=== PATIENT | female | born 1935 | race Hispanic/Latino ===

== ENCOUNTER 2016-06-29 18:12 | Observation (INO) | payer MEDICARE ==
[2016-06-29 18:26] VITALS: O2SAT 100
--- NOTE | 2016-06-29 18:52 | ED PDOC ---
Arrival/HPI - General Chief Complaint: GI Problem Time Seen by Provider: 06/29/16 18:32 Historian: Patient - History of Present Illness Narrative History of Present Illness (Text): 06/29/16 18:49 80 year old female presents to the emergency department with nausea. pt poor historian, but states feels weak. denies syncope. No chest pain, no other complaints. No fever, urinary symptoms, shortness of breath. PMD: Dr. aGrcia 06/29/16 21:51 Time/Duration: 24 hours Symptom Onset: Gradual Symptom Course: Unchanged Modifying Factors (Text): None Associated Symptoms (Text): None Past Medical History - Provider Review Nursing Documentation Reviewed: Yes - Infectious Disease Hx of Infectious Diseases: None - Tetanus Immunization Tetanus Immunization: Unknown - Cardiac Hx Pacemaker: No - Pulmonary Hx Respiratory Disorders: No - Neurological Hx Paralysis: No - HEENT Hx HEENT Disorder: Yes Hx Cataracts: Yes (bilateral) - Renal Hx Renal Disorder: No - Endocrine/Metabolic Hx Endocrine Disorders: No - Hematological/Oncological Hx Blood Transfusions: No Hx Blood Transfusion Reaction: No - Integumentary Hx Dermatological Disorder: No - Musculoskeletal/Rheumatological Hx Musculoskeletal Disorders: Yes - Gastrointestinal Hx Gastrointestinal Disorders: No - Genitourinary/Gynecological Hx Genitourinary Disorders: No - Psychiatric Hx Emotional Abuse: No Hx Physical Abuse: No Hx Substance Use: No - Surgical History Hx Cardiac Catheterization: Yes - Anesthesia Hx Anesthesia Reactions: No Hx Malignant Hyperthermia: No - Suicidal Assessment Feels Threatened In Home Enviroment: No Family/Social History - Physician Review Nursing Documentation Reviewed: Yes Family/Social History: Unknown Family HX Smoking Status: Former Smoker Hx Alcohol Use: No Hx Substance Use: No Hx Substance Use Treatment: No Allergies/Home Meds Allergies/Adverse Reactions: Allergies Penicillins Allergy (Severe, Verified 06/29/16 18:25) RASH Home Medications: Home Meds Medication Instructions Recorded Confirmed Clopidogrel [Plavix] 75 mg PO DAILY 09/08/14 04/19/16 Metoprolol Succinate 50 mg PO DAILY 09/08/14 04/19/16 Atorvastatin Calcium [Lipitor] 40 mg PO DAILY 11/10/14 04/19/16 Cholecalciferol (Vitamin D3) 1,000 mg PO DAILY 02/12/15 04/19/16 [Vitamin D3] Calcium Carbonate [Calcium] 500 mg PO DAILY 04/12/16 04/19/16 Donepezil [Aricept] 10 mg PO DAILY 04/12/16 04/19/16 Folic Acid 1 mg PO DAILY 04/12/16 04/19/16 Lisinopril [Zestril] 5 mg PO DAILY 04/12/16 04/19/16 Multivitamin [One Daily] 1 tab PO DAILY 04/12/16 04/19/16 [id number] Ethyl Esters [OMEGA 3] 500 mg PO DAILY 04/12/16 04/19/16 Psyllium Husk [Metamucil] 1 tab PO DAILY 04/12/16 04/19/16 Aspirin [Ecotrin] 81 mg PO DAILY 04/19/16 04/19/16 Gabapentin [Neurontin] 300 mg PO DAILY 04/19/16 04/19/16 Review of Systems - Physician Review All systems were reviewed & negative as marked: Yes - Review of Systems Constitutional: absent: Fevers Respiratory: absent: SOB Cardiovascular: absent: Chest Pain, Syncope Gastrointestinal: Nausea Genitourinary Female: absent: Dysuria, Frequency, Hematuria Physical Exam Vital Signs Reviewed: Yes Vital Signs Temp Pulse Resp BP Pulse Ox 06/29/16 21:17 49 L 17 177/85 H 100 06/29/16 20:37 42 L 16 120/87 100 06/29/16 19:07 98.4 F 44 L 16 141/77 100 06/29/16 18:16 97.4 F L 46 L 16 182/93 H 100 Temperature: Afebrile Blood Pressure: Hypertensive Pulse: Bradycardic Respiratory Rate: Normal Appearance: Positive for: Well-Appearing, Non-Toxic, Comfortable Pain Distress: None Mental Status: Positive for: Alert and Oriented X 3 - Systems Exam Head: Present: Atraumatic, Normocephalic Pupils: Present: PERRL Extroacular Muscles: Present: EOMI Conjunctiva: Present: Normal Mouth: Present: Moist Mucous Membranes Neck: Present: Normal Range of Motion Respiratory/Chest: Present: Clear to Auscultation, Good Air Exchange. No: Respiratory Distress, Accessory Muscle Use Cardiovascular: Present: Regular Rate and Rhythm, Normal S1, S2. No: Murmurs Abdomen: Present: Normal Bowel Sounds. No: Tenderness, Distention, Peritoneal Signs Back: Present: Normal Inspection Upper Extremity: Present: Normal Inspection. No: Cyanosis, Edema Lower Extremity: Present: Normal Inspection. No: Edema Neurological: Present: GCS=15, CN II-XII Intact, Speech Normal Skin: Present: Warm, Dry, Normal Color. No: Rashes Psychiatric: Present: Alert, Oriented x 3, Normal Insight, Normal Concentration Medical Decision Making ED Course and Treatment: Impression: 80 year old female presents to the emergency department with nausea/ weakness Differential Diagnosis include but are not limited to: r/o cardiac, metabolic, infectious etiology. noted bradycardia. pt on bblocker. previous records reviewed, and shows hr 50s+. Plan: -- EKG, Chest X-ray -- Zofran -- Labs -- Reassess and disposition Progress Notes: 06/29/16 19:49 Patient noted to be more bradycardic than normal. Patient states she lives by herself. Patient hemodynamically stable. Case discussed with Dr. Hollingsworth, accepts for observation. 06/29/16 21:51 - Lab Interpretations Lab Results: 06/29/16 18:56 06/29/16 18:56 Lab Results 06/29/16 18:56: WBC 7.3 D, RBC 4.46, Hgb 13.6, Hct 40.0, MCV 89.7, MCH 30.5, MCHC 34.0, RDW 13.5, Plt Count 194, MPV 10.9, Gran % 69.7 H, Lymph % (Auto) 23.5 , [place] % (Auto) 5.0, Eos % (Auto) 1.5, Baso % (Auto) 0.3, Gran # 5.07, Lymph # 1.7, [place] # 0.4, Eos # 0.1, Baso # 0.02, PT 10.7, INR 0.99, APTT 27.5, Sodium 134, Potassium 4.2, Chloride 99, Carbon Dioxide 28, Anion Gap 11, BUN 15, Creatinine 0.7, Est GFR ( Amer) > 60, Est GFR (Non-Af Amer) > 60, Random Glucose 110, Calcium 9.3, Magnesium 2.2, Total Bilirubin 0.8, AST 28, ALT 36, Alkaline Phosphatase 67, Lactate Dehydrogenase 368, Total Creatine Kinase 69, Troponin I < 0.01, Total Protein 7.2, Albumin 4.0, Globulin 3.1, Albumin/ Globulin Ratio 1.3, TSH 3rd Generation 0.80 - RAD Interpretation Radiology Orders: 06/29/16 18:46 CHEST PORTABLE [RAD] Stat - EKG Interpretation EKG Interpretation (Text): EKG shows sinus bradycardia at 47 BPM, otherwise normal Interpreted by ED Physician: Yes Type: 12 lead EKG - Medication Orders Current Medication Orders: Aspirin (Ecotrin) 81 mg PO DAILY MARCELO Atorvastatin Calcium (Lipitor) 40 mg PO DAILY MARCELO Clopidogrel Bisulfate (Plavix) 75 mg PO DAILY MARECLO Donepezil HCl (Aricept) 10 mg PO DAILY MARCELO Famotidine (Pepcid) 20 mg PO BID MARCELO Gabapentin (Neurontin) 300 mg PO DAILY MARCELO PRN Reason: Protocol Sodium Chloride (Sodium Chloride 0.9%) 1,000 mls @ 100 mls/hr IV .Q10H MARCELO Last Admin: 06/29/16 20:37 Dose: 100 MLS/HR eMAR Start Stop Document 06/29/16 20:37 WANDA (Rec: 06/29/16 20:37 WANDA [id number]) Intravenous Solution Start Date 06/29/16 Start Time 20:37 End Date 06/30/16 End time 06:37 Total Infusion Time 600 Lisinopril (Zestril) 5 mg PO DAILY [facility] Multivitamins (Thera Tab) 1 tab PO DAILY [facility] Non-Formulary Medication ([place]ibim-2-Saaj Ethyl Esters [[place] 3]) 500 mg PO DAILY MARCELO Ondansetron HCl (Zofran Inj) 4 mg IVP Q6H PRN PRN Reason: Nausea/Vomiting Discontinued Medications Ondansetron HCl (Zofran Inj) 4 mg IVP STAT STA Stop: 06/29/16 18:47 Last Admin: 06/29/16 19:42 Dose: 4 MG IVP Administration Document 06/29/16 19:42 WANDA (Rec: 06/29/16 19:42 WANDA [id number]) Charges for Administration # of IVP Administrations 1 - Scribe Statement The provider has reviewed the documentation as recorded by the Kinjal Frazier Provider Scribe Attestation: All medical record entries made by the Scribe were at my direction and personally dictated by me. I have reviewed the chart and agree that the record accurately reflects my personal performance of the history, physical exam, medical decision making, and the department course for this patient. I have also personally directed, reviewed, and agree with the discharge instructions and disposition. Disposition/Present on Arrival - Present on Arrival Any Indicators Present on Arrival: No History of DVT/PE: No History of Uncontrolled Diabetes: No Urinary Catheter: No History of Decub. Ulcer: No History Surgical Site Infection Following: None - Disposition Have Diagnosis and Disposition been Completed?: Yes Diagnosis: Bradycardia, Nausea Disposition: HOSPITALIZED Disposition Time: 09:00 Patient Problems: Current Active Problems Problem Status Diagnosed Bradycardia Acute Nausea Acute Condition: STABLE
[2016-06-29 18:58] LABS: ADD MANUAL DIFF? NO
[2016-06-29 19:13] LABS: BASO # 0.02 K/mm3 (0.0-2.0); BASO % 0.3 % (0.0-3.0); EOS # 0.1 (0.0-0.7); EOS % 1.5 % (1.5-5.0); GRAN # 5.07 (1.4-6.5); GRAN % 69.7 % (50.0-68.0); LYMPH # 1.7 (1.2-3.4); LYMPH % 23.5 % (22.0-35.0); MEAN CELL VOLUME 89.7 fL (80.0-105.0); MEAN CORPUSCULAR HEMOGLOBIN 30.5 pg (25.0-35.0); MEAN PLATELET VOLUME 10.9 fl (7.0-11.0); MONO # 0.4 (0.1-0.6); PLATELET COUNT 194 10^3/uL (120.0-450.0); RED CELL DISTRIBUTION WIDTH 13.5 % (11.5-14.5); WHITE BLOOD COUNT 7.3 10^3/ul (4.5-11.0)
[2016-06-29 19:18] LABS: ALB/GLOB RATIO 1.3 (1.1-1.8); ALKALINE PHOSPHATASE 67 U/L (38-133); ALT/SGPT 36 U/L (7-56); AST/SGOT 28 U/L (15-39); BILIRUBIN,TOTAL 0.8 mg/dL (0.2-1.3); BLOOD UREA NITROGEN 15 mg/dL (7-21); CALCIUM 9.3 mg/dL (8.4-10.5); CARBON DIOXIDE 28 mmol/L (21-33); CHLORIDE 99 mmol/L (98-107); GFR AFRICAN-AMERICAN > 60; GLUCOSE,RANDOM 110 mg/dL (70-110); MAGNESIUM 2.2 mg/dL (1.7-2.2); POTASSIUM 4.2 mmol/L (3.6-5.0); SODIUM 134 mmol/L (132-148); TOTAL PROTEIN 7.2 g/dL (5.8-8.3)
[2016-06-29 19:20] LABS: INR 0.99 (0.93-1.08); PARTIAL THROMBOPLASTIN TIME 27.5 Seconds (23.7-30.8)
[2016-06-29 19:41] LABS: TROPONIN I < 0.01 ng/mL
[2016-06-29] MEDS: Sodium Chloride 0.9% 1,000 ML IV SCH (20:37)
--- NOTE | 2016-06-29 20:37 | CP.PCM.HP ---
<Sophie Streeter - Last Filed: 06/29/16 21:12> History of Present Illness - History of Present Illness History of Present Illness: This is a 80Y F with PMH HTN, CAD, HLD, Dementia, [place], stent in RCA came in to the ED for nausea and weakness since this afternoon. She reports not feeling well today. She said she was feeling nauseous after eating a banana. She didn't vomit, but reports "not feeling right". Patient is noted to be a poor historian. At the time of interview, patient was noted to be bradycardic with HR in the 40s. She states she feels much better. She denies CP, SOB, n/v/d, numbness/tingling, vision changes. History obtained from reviewing old records. It is noted that patient had a stress test and echo on 01/[address] Monterroso. Echo showed EF of 50%, dilated L and R atria, mild aortic stenosis and moderate mitral regurgitation. Nuclear stress showed abnormal perfusion of distal inferior defect. It is noted on previous cardiac cath that the patient has severely calcified RCA. PMH: HTN, HLD, CAD, [place], dementia, discogenic disease of spine, neuropathy PSH: hysterectomy, PCI x 2- stent in RCA Home meds: ASA, Plavix, Lipitor, Lisinopril, Metroprolol, vit D, Calcium, Aricept, multivitamin All: Penicillin- not sure what happens when she takes it (doesnt remember) SH: Quit smoking 30yrs ago (used to smoked 1ppd x >10yrs), denies EtOH or drug use. Lives alone-takes care of self FH: non-contributory PMD: Dr. Carlson Boiler Out: Dr. Monterroso Present on Admission - Present on Admission Any Indicators Present on Admission: No Review of Systems - Constitutional Constitutional: Fatigue. absent: Chills, Fever, Headache - EENT Eyes: absent: Change in Vision, Loss of Vision Nose/Mouth/Throat: absent: Dysphagia, Tongue Swelling - Cardiovascular Cardiovascular: absent: Chest Pain at Rest, Leg Edema, Palpitations, Syncope - Respiratory Respiratory: absent: Cough, Dyspnea, Dyspnea on Exertion - Gastrointestinal Gastrointestinal: Nausea. absent: Change in Bowel Habits, Diarrhea, Dyspepsia, Vomiting - Genitourinary Genitourinary: absent: Dysuria, Hematuria - Musculoskeletal Musculoskeletal: absent: Numbness, Tingling - Neurological Neurological: Weakness. absent: Confusion, Headaches, Tingling, Vertigo Past Patient History - Infectious Disease Hx of Infectious Diseases: None - Tetanus Immunizations Tetanus Immunization: Unknown - Past Social History Smoking Status: Former Smoker - CARDIAC Hx Pacemaker: No - PULMONARY Hx Respiratory Disorders: No - NEUROLOGICAL Hx Paralysis: No - HEENT Hx HEENT Problems: Yes Hx Cataracts: Yes (bilateral) - RENAL Hx Chronic Kidney Disease: No - ENDOCRINE/METABOLIC Hx Endocrine Disorders: No - HEMATOLOGICAL/ONCOLOGICAL Hx Blood Transfusions: No Hx Blood Transfusion Reaction: No - INTEGUMENTARY Hx Dermatological Problems: No - MUSCULOSKELETAL/RHEUMATOLOGICAL Hx Musculoskeletal Disorders: Yes - GASTROINTESTINAL Hx Gastrointestinal Disorders: No - GENITOURINARY/GYNECOLOGICAL Hx Genitourinary Disorders: No - PSYCHIATRIC Hx Emotional Abuse: No Hx Physical Abuse: No Hx Substance Use: No - SURGICAL HISTORY Hx Cardiac Catheterization: Yes - ANESTHESIA Hx Anesthesia Reactions: No Hx Malignant Hyperthermia: No Meds Allergies/Adverse Reactions: Allergies Allergy/AdvReac Type Severity Reaction Status Date / Time Penicillins Allergy Severe RASH Verified 06/29/16 18:25 Physical Exam - Constitutional Appears: No Acute Distress - Head Exam Head Exam: ATRAUMATIC, NORMAL INSPECTION, NORMOCEPHALIC - Eye Exam Eye Exam: Normal appearance, PERRL Pupil Exam: NORMAL ACCOMODATION, PERRL - ENT Exam ENT Exam: Mucous Membranes Moist - Neck Exam Neck exam: Positive for: Normal Inspection - Respiratory Exam Respiratory Exam: Clear to Auscultation Bilateral, NORMAL BREATHING PATTERN. absent: Rhonchi, Wheezes - Cardiovascular Exam Cardiovascular Exam: Bradycardia, REGULAR RHYTHM, +S1, +S2. absent: Systolic Murmur - GI/Abdominal Exam GI & Abdominal Exam: Normal Bowel Sounds, Soft. absent: Mass, Rebound, Rigid, Tenderness - Extremities Exam Extremities exam: Positive for: normal inspection. Negative for: calf tenderness, pedal edema - Neurological Exam Neurological exam: Alert, CN II-XII Intact - Psychiatric Exam Psychiatric exam: Normal Affect, Normal Mood - Skin Skin Exam: Dry, Intact, Normal Color, Warm Results - Vital Signs Recent Vital Signs: Last Vital Signs Temp 98.4 F 06/29/16 19:07 Pulse 44 L 06/29/16 19:07 Resp 16 06/29/16 19:07 BP 141/77 06/29/16 19:07 Pulse Ox 100 06/29/16 19:07 - Labs Result Diagrams: 06/29/16 18:56 06/29/16 18:56 Labs: Laboratory Results - last 24 hr 06/29/16 18:56 WBC 7.3 D RBC 4.46 Hgb 13.6 Hct 40.0 MCV 89.7 MCH 30.5 MCHC 34.0 RDW 13.5 Plt Count 194 MPV 10.9 Gran % 69.7 H Lymph % (Auto) 23.5 [place] % (Auto) 5.0 Eos % (Auto) 1.5 Baso % (Auto) 0.3 Gran # 5.07 Lymph # 1.7 [place] # 0.4 Eos # 0.1 Baso # 0.02 PT 10.7 INR 0.99 APTT 27.5 Sodium 134 Potassium 4.2 Chloride 99 Carbon Dioxide 28 Anion Gap 11 BUN 15 Creatinine 0.7 Est GFR ( Amer) > 60 Est GFR (Non-Af Amer) > 60 Random Glucose 110 Calcium 9.3 Magnesium 2.2 Total Bilirubin 0.8 AST 28 ALT 36 Alkaline Phosphatase 67 Lactate Dehydrogenase 368 Total Creatine Kinase 69 Troponin I < 0.01 Total Protein 7.2 Albumin 4.0 Globulin 3.1 Albumin/Globulin Ratio 1.3 - EKG Data EKG Interpreted by: Myself EKG shows normal: Sinus rhythm Rate: Bradycardia Assessment & Plan - Assessment and Plan (Free Text) Assessment: This is a 80Y F with PMH HTN, CAD, HLD, Dementia, [place], stent in RCA admitted for symptomatic bradycardia. Plan: 1. Bradycardia - Hemodynamically stable - Troponin neg x 1 - Will check TSH - Hold Metoprolol - Cardiology Consulted- Dr. Monterroso - NPO - NS@100ml/hr - Zofran prn nausea 2. CAD - Continue Plavix, ASA 3. HTN - Continue Lisinopril 4. HLD - Continue Lipitor and [place]-3 5. Dementia - Continue Aricept 6. Hx of Neuropathy - Continue Gabapentin GI ppx: Pepcid DVT ppx: SCDs Case seen, reviewed and discussed with attending. Mariela Streeter PGY1 - Date & Time Date: 06/29/16 Time: 20:43 <Anthony Hollingsworth Q - Last Filed: 07/03/16 23:37> Results - Vital Signs Recent Vital Signs: Last Vital Signs Temp 97.9 F 06/30/16 12:00 Pulse 52 L 06/30/16 12:00 Resp 15 06/30/16 12:00 BP 138/67 06/30/16 12:00 Pulse Ox 100 06/30/16 05:21 - Labs Result Diagrams: 06/30/16 05:30 06/30/16 05:30 Attending/Attestation - Attestation I have personally seen and examined this patient.: Yes I have fully participated in the care of the patient.: Yes I have reviewed all pertinent clinical information: Yes
[2016-06-29 22:48] LABS: PH,URINE 6.5 (4.7-8.0); URINE BILIRUBIN NEGATIVE (NEGATIVE); URINE BLOOD TRACE-LYSED (NEGATIVE); URINE GLUCOSE (UA) NEGATIVE (NEGATIVE); URINE KETONE NEGATIVE (NEGATIVE); URINE LEUKOCYTE ESTERASE NEGATIVE Leu/uL (NEGATIVE); URINE PROTEIN NEGATIVE mg/dL (<30 mg/dL); URINE UROBILINOGEN 0.2 E.U./dL (<1 E.U./dL)
[2016-06-29 22:49] LABS: URINE APPEARANCE CLEAR (CLEAR); URINE COLOR STRAW (YELLOW)
[2016-06-29 23:04] LABS: URINE BACTERIA NEG (NEG); URINE EPITHELIAL CELLS 0 - 2 /hpf (0-5); URINE RBC 0 - 2 /hpf (0-2); URINE WBC NEGATIVE /hpf (0-6)
[2016-06-30 01:19] VITALS: BMI 23.3
[2016-06-30 05:21] VITALS: PULSE 52
[2016-06-30] MEDS: Sodium Chloride 0.9% 1,000 ML IV SCH (06:16)
[2016-06-30 07:53] LABS: TROPONIN I 0.02 ng/mL
[2016-06-30 08:03] LABS: ALB/GLOB RATIO 1.3 (1.1-1.8); ALKALINE PHOSPHATASE 55 U/L (38-133); ALT/SGPT 31 U/L (7-56); AST/SGOT 23 U/L (15-39); BILIRUBIN,TOTAL 0.6 mg/dL (0.2-1.3); BLOOD UREA NITROGEN 12 mg/dL (7-21); CALCIUM 8.7 mg/dL (8.4-10.5); CARBON DIOXIDE 27 mmol/L (21-33); CHLORIDE 104 mmol/L (98-107); GFR AFRICAN-AMERICAN > 60; GLUCOSE,RANDOM 83 mg/dL (70-110); POTASSIUM 3.8 mmol/L (3.6-5.0); SODIUM 137 mmol/L (132-148); TOTAL PROTEIN 6.1 g/dL (5.8-8.3)
--- NOTE | 2016-06-30 08:29 | RAD ---
HISTORY: weakness COMPARISON: 08/21/2015 FINDINGS: LUNGS: No active pulmonary disease. PLEURA: No significant pleural effusion identified, no pneumothorax apparent. CARDIOVASCULAR: Normal. OSSEOUS STRUCTURES: No significant abnormalities. VISUALIZED UPPER ABDOMEN: Normal. OTHER FINDINGS: None. IMPRESSION: No active disease.
[2016-06-30 08:54] LABS: ADD MANUAL DIFF? NO
[2016-06-30 08:57] LABS: BASO # 0.02 K/mm3 (0.0-2.0); BASO % 0.4 % (0.0-3.0); EOS # 0.2 (0.0-0.7); EOS % 3.2 % (1.5-5.0); GRAN # 2.97 (1.4-6.5); GRAN % 56.7 % (50.0-68.0); HEMATOCRIT 37.6 % (36.0-48.0); LYMPH # 1.7 (1.2-3.4); LYMPH % 32.4 % (22.0-35.0); MEAN CELL VOLUME 89.7 fL (80.0-105.0); MEAN CORPUSCULAR HEMOGLOBIN 30.5 pg (25.0-35.0); MONO # 0.4 (0.1-0.6); MONO % 7.3 % (1.0-6.0); PLATELET COUNT 177 10^3/uL (120.0-450.0); RED CELL DISTRIBUTION WIDTH 13.7 % (11.5-14.5); WHITE BLOOD COUNT 5.2 10^3/ul (4.5-11.0)
[2016-06-30] MEDS ORDERED: Non Formulary Medication (Omega-3-Acid Ethyl Esters [Omega 3] 500 MG) PO SCH (10:00)
[2016-06-30] MEDS ORDERED: Multivitamin Therapeutic Tab PO SCH (10:00)
--- NOTE | 2016-06-30 11:18 | CARD ---
APPROVED REPORT EKG Measurement Heart [id number] <Conclusion> Marked sinus bradycardia with sinus arrhythmia ST changes No change except the rate is slower.
[2016-06-30 12:20] VITALS: BP 138/67; RESP 15; TEMP 97.9
--- NOTE | 2016-06-30 12:53 | CP.PCM.DIS ---
<Tu Kent - Last Filed: 06/30/16 12:53> Provider - Provider Date of Admission: 06/29/16 19:49 Attending physician: Justin Maurice MD Primary care physician: Yosvany Carlson MD Time Spent in preparation of Discharge (in minutes): 45 Hospital Course - Lab Results Lab Results: Most Recent Lab Values WBC 5.2 10^3/ul (4.5-11.0) D 06/30/16 05:30 RBC 4.19 10^6/uL (3.5-6.1) 06/30/16 05:30 Hgb 12.8 gm/dL (12.0-16.0) 06/30/16 05:30 Hct 37.6 % (36.0-48.0) 06/30/16 05:30 MCV 89.7 fL (80.0-105.0) 06/30/16 05:30 MCH 30.5 pg (25.0-35.0) 06/30/16 05:30 MCHC 34.0 g/dl (31.0-37.0) 06/30/16 05:30 RDW 13.7 % (11.5-14.5) 06/30/16 05:30 Plt Count 177 10^3/uL (120.0-450.0) 06/30/16 05:30 MPV 11.0 fl (7.0-11.0) 06/30/16 05:30 Gran % 56.7 % (50.0-68.0) 06/30/16 05:30 Lymph % (Auto) 32.4 % (22.0-35.0) 06/30/16 05:30 [place] % (Auto) 7.3 % (1.0-6.0) H 06/30/16 05:30 Eos % (Auto) 3.2 % (1.5-5.0) 06/30/16 05:30 Baso % (Auto) 0.4 % (0.0-3.0) 06/30/16 05:30 Gran # 2.97 (1.4-6.5) 06/30/16 05:30 Lymph # 1.7 (1.2-3.4) 06/30/16 05:30 [place] # 0.4 (0.1-0.6) 06/30/16 05:30 Eos # 0.2 (0.0-0.7) 06/30/16 05:30 Baso # 0.02 K/mm3 (0.0-2.0) 06/30/16 05:30 PT 10.8 Seconds (9.9-11.8) 06/30/16 05:30 INR 1.00 (0.93-1.08) 06/30/16 05:30 APTT 27.5 Seconds (23.7-30.8) 06/29/16 18:56 Sodium 137 mmol/L (132-148) 06/30/16 05:30 Potassium 3.8 mmol/L (3.6-5.0) 06/30/16 05:30 Chloride 104 mmol/L (98-107) 06/30/16 05:30 Carbon Dioxide 27 mmol/L (21-33) 06/30/16 05:30 Anion Gap 10 (10-20) 06/30/16 05:30 BUN 12 mg/dL (7-21) 06/30/16 05:30 Creatinine 0.6 mg/dL (0.5-1.4) 06/30/16 05:30 Est GFR ( Amer) > 60 06/30/16 05:30 Est GFR (Non-Af Amer) > 60 06/30/16 05:30 Random Glucose 83 mg/dL (70-110) 06/30/16 05:30 Calcium 8.7 mg/dL (8.4-10.5) 06/30/16 05:30 Magnesium 2.2 mg/dL (1.7-2.2) 06/29/16 18:56 Total Bilirubin 0.6 mg/dL (0.2-1.3) 06/30/16 05:30 AST 23 U/L (15-39) 06/30/16 05:30 ALT 31 U/L (7-56) 06/30/16 05:30 Alkaline Phosphatase 55 U/L (38-133) 06/30/16 05:30 Lactate Dehydrogenase 368 U/L (333-699) 06/29/16 18:56 Total Creatine Kinase 69 U/L (35-230) 06/29/16 18:56 Troponin I 0.02 ng/mL D 06/30/16 05:30 Total Protein 6.1 g/dL (5.8-8.3) 06/30/16 05:30 Albumin 3.4 g/dL (3.0-4.8) 06/30/16 05:30 Globulin 2.7 gm/dL 06/30/16 05:30 Albumin/Globulin Ratio 1.3 (1.1-1.8) 06/30/16 05:30 TSH 3rd Generation 0.80 mIU/mL (0.46-4.68) 06/29/16 18:56 Urine Color Straw (YELLOW) 06/29/16 22:04 Urine Appearance Clear (CLEAR) 06/29/16 22:04 Urine pH 6.5 (4.7-8.0) 06/29/16 22:04 Ur Specific [place] 1.010 (1.005-1.035) 06/29/16 22:04 Urine Protein Negative mg/dL (<30 mg/dL) 06/29/16 22:04 Urine Glucose (UA) Negative mg/dL (NEGATIVE) 06/29/16 22:04 Urine Ketones Negative mg/dL (NEGATIVE) 06/29/16 22:04 Urine Blood Trace-lysed (NEGATIVE) H 06/29/16 22:04 Urine Nitrate Negative (NEGATIVE) 06/29/16 22:04 Urine Bilirubin Negative (NEGATIVE) 06/29/16 22:04 Urine Urobilinogen 0.2 E.U./dL (<1 E.U./dL) 06/29/16 22:04 Ur Leukocyte Esterase Negative [place]/uL (NEGATIVE) 06/29/16 22:04 Urine RBC 0 - 2 /hpf (0-2) 06/29/16 22:04 Urine WBC Negative /hpf (0-6) 06/29/16 22:04 Ur Epithelial Cells 0 - 2 /hpf (0-5) 06/29/16 22:04 Urine Bacteria Neg (NEG) 06/29/16 22:04 - Hospital Course Hospital Course: This is a 80Y F with PMH HTN, CAD, HLD, Dementia, [place], stent in RCA came in to the ED for nausea and weakness since this afternoon. She reports not feeling well today. She said she was feeling nauseous after eating a banana. She didn't vomit, but reports "not feeling right". Patient is noted to be a poor historian. At the time of interview, patient was noted to be bradycardic with HR in the 40s. She states she feels much better. She denies CP, SOB, n/v/d, numbness/tingling, vision changes. History obtained from reviewing old records. It is noted that patient had a stress test and echo on 01/[address] Monterroso. Echo showed EF of 50%, dilated L and R atria, mild aortic stenosis and moderate mitral regurgitation. Nuclear stress showed abnormal perfusion of distal inferior defect. It is noted on previous cardiac cath that the patient has severely calcified RCA. The following day pt felt better. Pt was given IVF. EKG showed sinus bradycardia. No longer felt dizzy or nauseous. Pt was seen by Cardio and cleared to DC home and ordered to DC Metoprolol. Pt tolerated diet and instructed to stop taking metoprolol. PMH: HTN, HLD, CAD, [place], dementia, discogenic disease of spine, neuropathy PSH: hysterectomy, PCI x 2- stent in RCA Home meds: ASA, Plavix, Lipitor, Lisinopril, Metroprolol, vit D, Calcium, Aricept, multivitamin All: Penicillin- not sure what happens when she takes it (doesnt remember) SH: Quit smoking 30yrs ago (used to smoked 1ppd x >10yrs), denies EtOH or drug use. Lives alone-takes care of self FH: non-contributory PMD: Dr. Carlson Camp Advisor: Dr. Monterroso Discharge Exam - Head Exam Head Exam: ATRAUMATIC, NORMAL INSPECTION, NORMOCEPHALIC - Eye Exam Eye Exam: EOMI, Normal appearance, PERRL Pupil Exam: NORMAL ACCOMODATION, PERRL - ENT Exam ENT Exam: Mucous Membranes Moist - Respiratory Exam Respiratory Exam: Clear to PA & Lateral, NORMAL BREATHING PATTERN, UNREMARKABLE - Cardiovascular Exam Cardiovascular Exam: Bradycardia, +S1, +S2 - GI/Abdominal Exam GI & Abdominal Exam: Normal Bowel Sounds - Extremities Exam Extremities exam: full ROM, normal inspection - Neurological Exam Neurological exam: Alert, CN II-XII Intact, Normal Gait, Oriented x3, Reflexes Normal - Psychiatric Exam Psychiatric exam: Normal Affect, Normal Mood - Skin Skin Exam: Dry, Intact, Normal Color, Warm Discharge Plan - Discharge Medications Prescriptions: Donepezil [Aricept] 10 mg PO DAILY #20 tab Gabapentin [Neurontin] 300 mg PO DAILY #20 cap [id number] Ethyl Esters [OMEGA 3] 500 mg PO DAILY #20 capsule Clopidogrel [Plavix] 75 mg PO DAILY #20 tab Lisinopril [Zestril] 5 mg PO DAILY #20 tab - Follow Up Plan Condition: STABLE Disposition: HOME/ ROUTINE Patient education suggested?: Yes Instructions: Acute Nausea and Vomiting (DC), Bradycardia (DC) Additional Instructions: f/u with PMD in 2 weeks Discontinue taking metoprolol Take Rx as prescribed Referrals: Yosvany Carlson MD [Primary Care Provider] - <Justin Maurice - Last Filed: 06/30/16 16:16> Provider - Provider Date of Admission: 06/29/16 19:49 Attending physician: Justin Maurice MD Primary care physician: Yosvany Carlson MD Hospital Course - Lab Results Lab Results: Most Recent Lab Values WBC 5.2 10^3/ul (4.5-11.0) D 06/30/16 05:30 RBC 4.19 10^6/uL (3.5-6.1) 06/30/16 05:30 Hgb 12.8 gm/dL (12.0-16.0) 06/30/16 05:30 Hct 37.6 % (36.0-48.0) 06/30/16 05:30 MCV 89.7 fL (80.0-105.0) 06/30/16 05:30 MCH 30.5 pg (25.0-35.0) 06/30/16 05:30 MCHC 34.0 g/dl (31.0-37.0) 06/30/16 05:30 RDW 13.7 % (11.5-14.5) 06/30/16 05:30 Plt Count 177 10^3/uL (120.0-450.0) 06/30/16 05:30 MPV 11.0 fl (7.0-11.0) 06/30/16 05:30 Gran % 56.7 % (50.0-68.0) 06/30/16 05:30 Lymph % (Auto) 32.4 % (22.0-35.0) 06/30/16 05:30 Travis % (Auto) 7.3 % (1.0-6.0) H 06/30/16 05:30 Eos % (Auto) 3.2 % (1.5-5.0) 06/30/16 05:30 Baso % (Auto) 0.4 % (0.0-3.0) 06/30/16 05:30 Gran # 2.97 (1.4-6.5) 06/30/16 05:30 Lymph # 1.7 (1.2-3.4) 06/30/16 05:30 Travis # 0.4 (0.1-0.6) 06/30/16 05:30 Eos # 0.2 (0.0-0.7) 06/30/16 05:30 Baso # 0.02 K/mm3 (0.0-2.0) 06/30/16 05:30 PT 10.8 Seconds (9.9-11.8) 06/30/16 05:30 INR 1.00 (0.93-1.08) 06/30/16 05:30 APTT 27.5 Seconds (23.7-30.8) 06/29/16 18:56 Sodium 137 mmol/L (132-148) 06/30/16 05:30 Potassium 3.8 mmol/L (3.6-5.0) 06/30/16 05:30 Chloride 104 mmol/L (98-107) 06/30/16 05:30 Carbon Dioxide 27 mmol/L (21-33) 06/30/16 05:30 Anion Gap 10 (10-20) 06/30/16 05:30 BUN 12 mg/dL (7-21) 06/30/16 05:30 Creatinine 0.6 mg/dL (0.5-1.4) 06/30/16 05:30 Est GFR ( Amer) > 60 06/30/16 05:30 Est GFR (Non-Af Amer) > 60 06/30/16 05:30 Random Glucose 83 mg/dL (70-110) 06/30/16 05:30 Calcium 8.7 mg/dL (8.4-10.5) 06/30/16 05:30 Magnesium 2.2 mg/dL (1.7-2.2) 06/29/16 18:56 Total Bilirubin 0.6 mg/dL (0.2-1.3) 06/30/16 05:30 AST 23 U/L (15-39) 06/30/16 05:30 ALT 31 U/L (7-56) 06/30/16 05:30 Alkaline Phosphatase 55 U/L (38-133) 06/30/16 05:30 Lactate Dehydrogenase 368 U/L (333-699) 06/29/16 18:56 Total Creatine Kinase 69 U/L (35-230) 06/29/16 18:56 Troponin I 0.02 ng/mL D 06/30/16 05:30 Total Protein 6.1 g/dL (5.8-8.3) 06/30/16 05:30 Albumin 3.4 g/dL (3.0-4.8) 06/30/16 05:30 Globulin 2.7 gm/dL 06/30/16 05:30 Albumin/Globulin Ratio 1.3 (1.1-1.8) 06/30/16 05:30 TSH 3rd Generation 0.80 mIU/mL (0.46-4.68) 06/29/16 18:56 Urine Color Straw (YELLOW) 06/29/16 22:04 Urine Appearance Clear (CLEAR) 06/29/16 22:04 Urine pH 6.5 (4.7-8.0) 06/29/16 22:04 Ur Specific [place] 1.010 (1.005-1.035) 06/29/16 22:04 Urine Protein Negative mg/dL (<30 mg/dL) 06/29/16 22:04 Urine Glucose (UA) Negative mg/dL (NEGATIVE) 06/29/16 22:04 Urine Ketones Negative mg/dL (NEGATIVE) 06/29/16 22:04 Urine Blood Trace-lysed (NEGATIVE) H 06/29/16 22:04 Urine Nitrate Negative (NEGATIVE) 06/29/16 22:04 Urine Bilirubin Negative (NEGATIVE) 06/29/16 22:04 Urine Urobilinogen 0.2 E.U./dL (<1 E.U./dL) 06/29/16 22:04 Ur Leukocyte Esterase Negative [place]/uL (NEGATIVE) 06/29/16 22:04 Urine RBC 0 - 2 /hpf (0-2) 06/29/16 22:04 Urine WBC Negative /hpf (0-6) 06/29/16 22:04 Ur Epithelial Cells 0 - 2 /hpf (0-5) 06/29/16 22:04 Urine Bacteria Neg (NEG) 06/29/16 22:04 Attending/Attestation - Attestation I have personally seen and examined this patient.: Yes I have fully participated in the care of the patient.: Yes I have reviewed all pertinent clinical information, including history, physical exam and plan: Yes Notes (Text): I have seen and examined patient at bedside with the resident. This is 80 year old female with history of HTN, CAD, HLD, dementia, [place] s/p RCA stent who got admitted for evaluation of nausea , weakness and found to have sinus bradycardia. Her symptoms improved over night. This morning she was able to tolerate the diet without any problem. She also was able to walk in the hallway without any difficulty. Patient was taking metoprolol which was held. Discussed with Dr Monterroso who cleared the patient for discharge. Upon discharge patient will follow up with Dr Danielson and Dr Monterroso. Patient lives alone and is able to drive and is capable of ADL's as per patient and her daughter. buckle coverer consult appreciated. Dr Justin Maurice
--- NOTE | 2016-06-30 16:19 | CON ---
DATE: 06/30/2016 HISTORY OF PRESENT ILLNESS: The patient is a 80-year-old woman who presents with transient nausea an d malaise. I was called to see her for bradycardia to the 50s. The patient denies dizziness, no shortness of breath and no chest pain. The patient suffers from hypertension as well as multivessel PTCA in the past. Her last stress test that was done in 01/2016 revealed good LV function with no change in her defects from her previous. PAST MEDICAL HISTORY: Also includes a history of hypercholesterolemia and COPD. SOCIAL HISTORY: She is a former smoker and she no longer smokes. REVIEW OF SYSTEMS: A 14-point review of systems was reviewed in detail. No cardiac symptomatology i s noted. PHYSICAL EXAMINATION: VITAL SIGNS: Blood pressure 137/73, heart rate is in the 50s and normal sinus rhythm. NECK: Negative JVD. LUNGS: Without rales. HEART: Reveals S1, S2. EXTREMITIES: Without edema. EKG is unremarkable. LABORATORIES: Hemoglobin is 12.8. Troponins are negative x 2. IMPRESSION: 1. Stable angina. 2. Bradycardia, likely due to her beta blockers as well as vagal stimulation from her nausea. 3. Stable angina. 4. Coronary artery disease. 5. Chronic obstructive pulmonary disease. 6. Hypercholesterolemia. Given these findings, the patient's treatment would be medical therapy. We will hold her beta blocke rs. No further cardiac workup is necessary at this time. Be Monterroso MD cc: [id number] TT: 06/30/2016 16:19:03 Confirmation # [id number] Dictation # [id number]
== END 2016-06-30 15:28 | disposition home or self-care (01) ==
LOC: ED 18:12 → ERH 19:49 → 2RNO 22:51
PROVIDERS: ADMIT Internal Medicine; ATTEND Hospitalist
DX: I25.118 Atherosclerotic heart disease of native coronary artery with other forms of angina pectoris (principal); I25.84 Coronary atherosclerosis due to calcified coronary lesion; E78.00 Pure hypercholesterolemia, unspecified; E78.5 Hyperlipidemia, unspecified; F03.90 Unspecified dementia, unspecified severity, without behavioral disturbance, psychotic disturbance, mood disturbance, and anxiety; I08.0 Rheumatic disorders of both mitral and aortic valves; I10 Essential (primary) hypertension; J44.9 Chronic obstructive pulmonary disease, unspecified; Z79.02 Long term (current) use of antithrombotics/antiplatelets; Z79.82 Long term (current) use of aspirin; Z79.899 Other long term (current) drug therapy; Z87.891 Personal history of nicotine dependence; Z90.710 Acquired absence of both cervix and uterus; Z95.5 Presence of coronary angioplasty implant and graft; H26.9 Unspecified cataract; R11.0 Nausea; I25.2 Old myocardial infarction; G62.9 Polyneuropathy, unspecified; R00.1 Bradycardia, unspecified
CPT/HCPCS: 36415; 71010; 80053; 81001; 82550; 83615; 83735; 84443; 84484; 85025; 85610; 85730; 93005; 96361; 96374; 99284; G0378; J2405; J7040

== ENCOUNTER 2016-12-22 10:01 | Emergency (ER) | payer MEDICARE ==
[2016-12-22 10:02] VITALS: BMI 23.3
[2016-12-22 10:10] VITALS: TEMP 98; O2SAT 99
--- NOTE | 2016-12-22 11:06 | ED PDOC ---
Arrival/HPI - General Chief Complaint: Back Pain Time Seen by Provider: 12/22/16 10:40 Historian: Patient - History of Present Illness Narrative History of Present Illness (Text): 12/22/16 10:49 A 81 year old female presents to the emergency department complaining of right mid thoracic back pain for the past 3-4 days. Patient reports pain occasionally radiates up towards her neck. Pain is non-positional and non-reproducible. Patient denies any trauma, injury, fever, chills, nausea, vomiting, abdominal pain, chest pain, shortness of breath, dyspnea on exertion or any other complaints. Time/Duration: Other (3-4 days) Symptom Course: Unchanged Quality: Other Context: Home Past Medical History - Provider Review Nursing Documentation Reviewed: Yes - Infectious Disease Hx of Infectious Diseases: None - Tetanus Immunization Tetanus Immunization: Unknown - Cardiac Hx Cardiac Disorders: Yes Hx Hypertension: Yes Hx Peripheral Vascular Disease: Yes - Pulmonary Hx Respiratory Disorders: No - Neurological Hx Neurological Disorder: Yes Hx Dementia: Yes - HEENT Hx HEENT Disorder: Yes (wears glasses) Hx Cataracts: Yes (bilateral) - Renal Hx Renal Disorder: No - Endocrine/Metabolic Hx Endocrine Disorders: No - Hematological/Oncological Hx Blood Disorders: No - Integumentary Hx Dermatological Disorder: No - Musculoskeletal/Rheumatological Hx Musculoskeletal Disorders: Yes Hx Back Pain: Yes (degenerative disc disease of spine) Hx Falls: No Hx Osteoarthritis: Yes - Gastrointestinal Hx Gastrointestinal Disorders: No - Genitourinary/Gynecological Hx Genitourinary Disorders: Yes Hx Incontinence: Yes Other/Comment: bladder prolapse with lift - Psychiatric Hx Psychophysiologic Disorder: No Hx Substance Use: No - Surgical History Hx Cardiac Catheterization: Yes Hx Coronary Stent: Yes Hx Hysterectomy: Yes Other/Comment: Bladder lift - Anesthesia Hx Anesthesia Reactions: No Hx Malignant Hyperthermia: No - Suicidal Assessment Feels Threatened In Home Enviroment: No Family/Social History - Physician Review Nursing Documentation Reviewed: Yes Family/Social History: No Known Family HX Smoking Status: Former Smoker Hx Alcohol Use: No Hx Substance Use: No Hx Substance Use Treatment: No Allergies/Home Meds Allergies/Adverse Reactions: Allergies Penicillins Allergy (Severe, Verified 12/22/16 10:04) RASH Home Medications: Home Meds Medication Instructions Recorded Confirmed Metoprolol Succinate 50 mg PO DAILY 09/08/14 12/22/16 Atorvastatin Calcium [Lipitor] 40 mg PO DAILY 11/10/14 12/22/16 Cholecalciferol (Vitamin D3) 1,000 mg PO DAILY 02/12/15 12/22/16 [Vitamin D3] Calcium Carbonate [Calcium] 500 mg PO DAILY 04/12/16 12/22/16 Folic Acid 1 mg PO DAILY 04/12/16 12/22/16 Multivitamin [One Daily] 1 tab PO DAILY 04/12/16 12/22/16 Psyllium Husk [Metamucil] 1 tab PO DAILY 04/12/16 12/22/16 Aspirin [Aspirin EC] 325 mg PO DAILY 06/29/16 12/22/16 Oxybutynin [Ditropan Tab] 5 mg PO DAILY 06/29/16 12/22/16 Physical Exam - Physical Exam Narrative Physical Exam (Text): - Review of Systems Constitutional: Normal. absent: Fatigue, Weight Change, Fevers Eyes: Normal ENT: denies sore throat, denies tristhmus Respiratory: Normal. absent: SOB, Cough, Sputum Cardiovascular: absent: Chest Pain, Palpitations, Syncope Gastrointestinal: Normal. absent: Abdominal Pain, Diarrhea, Nausea, Vomiting Genitourinary: Normal. absent: Dysuria, Frequency, Hematuria Musculoskeletal: (+) Back Pain, Neck Pain absent: Arthralgias Skin: no rashes, no erythema Neurological: absent: Focal Weakness Endocrine: Normal Hemo/Lymphatic: Normal Psychiatric: No suicidal or homicidal ideations Physical exam Patient appears age appropriate in no distress, speaking full sentences without difficulty - Systems Exam Head: Present: Atraumatic, Normocephalic Pupils: Present: PERRL Extroacular Muscles: Present: EOMI Conjunctiva: Present: Normal Mouth: Present: Moist Mucous Membranes Neck: Present: full active and passive ROM No: MIDLINE TENDERNESS Respiratory/Chest: Present: Clear to Auscultation, Good Air Exchange. No: Respiratory Distress, Accessory Muscle Use, Tachypneic Cardiovascular: Present: Regular Rate and Rhythm, Normal S1, S2, Peripheal Pulses Present. No: Murmurs Abdomen: Present: Normal Bowel Sounds. No: Tenderness, Distention, Peritoneal Signs, Rebound, Guarding Back: Present: Paraspinal tenderness No: Midline Tenderness Upper Extremity: Present: Normal Inspection. No: Cyanosis, Edema Lower Extremity: Present: Normal Inspection. No: Edema Neurological: Present: GCS=15, Speech Normal, cranial nerves II through XII fully intact with no cerebellar abnormality, neurosensory fully intact. No focal neurological deficits. Skin: Present: Warm, Dry, Normal Color. No: Rashes Lymphatic: Present: OX3, NI, NC Psychiatric: Present: Alert, Oriented x 3, Normal Insight, Normal Concentration Vital Signs Reviewed: Yes Vital Signs Temp Pulse Resp BP Pulse Ox 12/22/16 13:29 74 18 177/90 H 12/22/16 10:06 98.0 F 70 16 112/77 99 Temperature: Afebrile Blood Pressure: Normal Pulse: Regular Respiratory Rate: Normal Appearance: Positive for: Well-Appearing, Non-Toxic, Comfortable Pain Distress: None Mental Status: Positive for: Alert and Oriented X 3 Medical Decision Making ED Course and Treatment: 12/22/16 10:49 Impression: A 81 year old female with right mid thoracic pain. Patient notes radiation to neck. Physical exam unremarkable. Differential Diagnosis included but are not limited to: Musculoskeletal pain Plan: -- Chest CT r/o dissection -- Chest xray -- EKG -- Labs -- Toradol -- Reassess and disposition Progress Notes: EKG shows sinus bradycardia at [address]-segment elevations, normal intervals, slight lateral ST-segment depressions also present on prior EKG on . Interpreted by me. 12/22/16 11:36 Chest X-ray read and interpreted by me, which shows no cardiomegaly, no pneumothorax, no effusions. 12/22/16 13:30 CT is not working pt states she does not want to stay in the ER and wait for the CT in the ER I explained to pt that without the CT we may miss a dissection or other acute findings The patient refuses further workup and wishes to leave the Emergency Department against my medical advice. Patient was told that further workup is necessary and a full explanation of the reasons why was given, and understood by patient. The risks of leaving were explained and include worsening of condition, and permanent disability and from an undiagnosed or untreated condition. The patient accepts these risks, and is in my judgement is competent and capable of understanding the clinical situation and my explanation of the risks of leaving. Patient was given the opportunity to ask questions and change mind. The patient was instructed regarding the best care for the present symptoms, and to follow up with Dr. Carlson as soon as possible, or return to the Emergency Department at any time for continuing care. - Lab Interpretations Lab Results: 12/22/16 11:16 12/22/16 11:16 Lab Results 12/22/16 11:16: Sodium 138, Potassium 4.2, Chloride 100, Carbon Dioxide 28, Anion Gap 14, BUN 16, Creatinine 0.7, Est GFR ( Amer) > 60, Est GFR (Non- Af Amer) > 60, Random Glucose 83, Calcium 9.2, Total Bilirubin 0.6, AST 28, ALT 27, Alkaline Phosphatase 62, Lactate Dehydrogenase 362, Total Creatine Kinase 70 , Troponin I < 0.01 D, Total Protein 6.9, Albumin 4.2, Globulin 2.6, Albumin/ Globulin Ratio 1.6 12/22/16 11:16: PT 10.7, INR 0.99, APTT 27.6 12/22/16 11:16: WBC 6.1, RBC 4.40, Hgb 13.2, Hct 39.6, MCV 90.0, MCH 30.0, MCHC 33.3, RDW 14.0, Plt Count 188, MPV 10.4, Gran % 68.8 H, Lymph % (Auto) 23.0, [place] % (Auto) 6.6 H, Eos % (Auto) 1.3 L, Baso % (Auto) 0.3, Gran # 4.16, Lymph # 1.4, [place] # 0.4, Eos # 0.1, Baso # 0.02 I have reviewed the lab results: Yes - RAD Interpretation Radiology Orders: 12/22/16 10:49 ANGIO CHEST/ABDOMEN/PELVIS [CT] Stat CHEST PORTABLE [RAD] Stat - Medication Orders Current Medication Orders: Discontinued Medications Ketorolac Tromethamine (Toradol) 15 mg IVP STAT STA Stop: 12/22/16 10:50 Last Admin: 12/22/16 11:52 Dose: - Scribe Statement The provider has reviewed the documentation as recorded by the [employer] Rachel Provider Scribe Attestation: All medical record entries made by the Scribe were at my direction and personally dictated by me. I have reviewed the chart and agree that the record accurately reflects my personal performance of the history, physical exam, medical decision making, and the department course for this patient. I have also personally directed, reviewed, and agree with the discharge instructions and disposition. Disposition/Present on Arrival - Present on Arrival Any Indicators Present on Arrival: No History of DVT/PE: No History of Uncontrolled Diabetes: No Urinary Catheter: No History of Decub. Ulcer: No History Surgical Site Infection Following: None - Disposition Have Diagnosis and Disposition been Completed?: Yes Diagnosis: Back pain Disposition: AGAINST MEDICAL ADVICE Disposition Time: 13:31 Patient Plan: Discharge Condition: GUARDED Discharge Instructions (ExitCare): Back Pain (ED), Against Medical Advice (ED) Additional Instructions: PLEASE RETURN TO THE EMERGENCY DEPARTMENT FOR NEW OR WORSENING SYMPTOMS. RETURN RIGHT AWAY IF YOU CANNOT FOLLOW UP WITH YOUR PRIMARY CARE DOCTOR, CLINIC, OR SPECIALIST IN 1-2 DAYS. Prescriptions: Ibuprofen [Motrin] 600 mg PO Q8 PRN #12 tab PRN Reason: Pain, Moderate (4-7) Lidocaine 5% [Lidoderm] 1 ea TD DAILY #3 patch Referrals: Yosvany Carlson MD [Primary Care Provider] - Follow up with primary Forms: [employer] ([place]i)
[2016-12-22 11:32] LABS: BASO # 0.02 K/mm3 (0.0-2.0); BASO % 0.3 % (0.0-3.0); EOS # 0.1 (0.0-0.7); EOS % 1.3 % (1.5-5.0); GRAN # 4.16 (1.4-6.5); GRAN % 68.8 % (50.0-68.0); HEMATOCRIT 39.6 % (36.0-48.0); LYMPH # 1.4 (1.2-3.4); MEAN CORPUSCULAR HGB CONC 33.3 g/dl (31.0-37.0); MEAN PLATELET VOLUME 10.4 fl (7.0-11.0); MONO # 0.4 (0.1-0.6); MONO % 6.6 % (1.0-6.0); WHITE BLOOD COUNT 6.1 10^3/ul (4.5-11.0)
--- NOTE | 2016-12-22 11:38 | RAD ---
HISTORY: cough COMPARISON: 06/29/2016 FINDINGS: LUNGS: No active pulmonary disease. PLEURA: No significant pleural effusion identified, no pneumothorax apparent. CARDIOVASCULAR: Normal. OSSEOUS STRUCTURES: No significant abnormalities. VISUALIZED UPPER ABDOMEN: Normal. OTHER FINDINGS: None. IMPRESSION: No active disease.
[2016-12-22 11:41] LABS: INR 0.99 (0.93-1.08); PARTIAL THROMBOPLASTIN TIME 27.6 Seconds (23.7-30.8)
[2016-12-22 11:59] LABS: ALB/GLOB RATIO 1.6 (1.1-1.8); ALKALINE PHOSPHATASE 62 U/L (38-126); ALT/SGPT 27 U/L (7-56); AST/SGOT 28 U/L (14-36); BILIRUBIN,TOTAL 0.6 mg/dL (0.2-1.3); BLOOD UREA NITROGEN 16 mg/dL (7-21); CALCIUM 9.2 mg/dL (8.4-10.5); CARBON DIOXIDE 28 mmol/L (21-33); CHLORIDE 100 mmol/L (98-107); GFR AFRICAN-AMERICAN > 60; GLUCOSE,RANDOM 83 mg/dL (70-110); POTASSIUM 4.2 mmol/L (3.6-5.0); SODIUM 138 mmol/L (132-148); TOTAL PROTEIN 6.9 g/dL (5.8-8.3)
[2016-12-22 12:02] LABS: TROPONIN I < 0.01 ng/mL
[2016-12-22 13:29] VITALS: BP 177/90; PULSE 74; RESP 18
--- NOTE | 2016-12-22 22:07 | CARD ---
APPROVED REPORT EKG Measurement Heart [id number] <Conclusion> Poor data quality, interpretation may be adversely affected Sinus bradycardia Otherwise normal ECG
== END 2016-12-22 13:42 | disposition left against medical advice (07) ==
LOC: ED 10:01
DX: M54.9 Dorsalgia, unspecified (principal); I10 Essential (primary) hypertension; Z87.891 Personal history of nicotine dependence

== ENCOUNTER 2016-12-22 17:05 | Emergency (ER) | payer MEDICARE ==
[2016-12-22 17:06] VITALS: BMI 23.3
[2016-12-22 17:19] VITALS: RESP 16; TEMP 97.9; O2SAT 99
--- NOTE | 2016-12-22 17:26 | ED PDOC ---
Arrival/HPI - General Time Seen by Provider: 12/22/16 17:15 - History of Present Illness Narrative History of Present Illness (Text): 12/22/16 17:16 Patient in the ER, after signing out AMA, now back for CT to r/o dissection. Pt states her neck/back pain is better. No sob/hardy, no chest pain. No other complaints. Past Medical History - Provider Review Nursing Documentation Reviewed: Yes - Infectious Disease Hx of Infectious Diseases: None - Tetanus Immunization Tetanus Immunization: Unknown - Cardiac Hx Cardiac Disorders: Yes Hx Hypertension: Yes Hx Peripheral Vascular Disease: Yes - Pulmonary Hx Respiratory Disorders: No - Neurological Hx Neurological Disorder: Yes Hx Dementia: Yes - HEENT Hx HEENT Disorder: Yes (wears glasses) Hx Cataracts: Yes (bilateral) - Renal Hx Renal Disorder: No - Endocrine/Metabolic Hx Endocrine Disorders: No - Hematological/Oncological Hx Blood Disorders: No - Integumentary Hx Dermatological Disorder: No - Musculoskeletal/Rheumatological Hx Musculoskeletal Disorders: Yes Hx Back Pain: Yes (degenerative disc disease of spine) Hx Falls: No Hx Osteoarthritis: Yes - Gastrointestinal Hx Gastrointestinal Disorders: No - Genitourinary/Gynecological Hx Genitourinary Disorders: Yes Hx Incontinence: Yes Other/Comment: bladder prolapse with lift - Psychiatric Hx Psychophysiologic Disorder: No Hx Substance Use: No - Surgical History Hx Cardiac Catheterization: Yes Hx Coronary Stent: Yes Hx Hysterectomy: Yes Other/Comment: Bladder lift - Anesthesia Hx Anesthesia Reactions: No Hx Malignant Hyperthermia: No - Suicidal Assessment Feels Threatened In Home Enviroment: No Family/Social History Family/Social History: Unknown Family HX Smoking Status: Former Smoker Hx Alcohol Use: No Hx Substance Use: No Hx Substance Use Treatment: No Allergies/Home Meds Allergies/Adverse Reactions: Allergies Penicillins Allergy (Severe, Verified 12/22/16 17:15) RASH Home Medications: Home Meds Medication Instructions Recorded Confirmed Metoprolol Succinate 50 mg PO DAILY 09/08/14 12/22/16 Atorvastatin Calcium [Lipitor] 40 mg PO DAILY 11/10/14 12/22/16 Cholecalciferol (Vitamin D3) 1,000 mg PO DAILY 02/12/15 12/22/16 [Vitamin D3] Calcium Carbonate [Calcium] 500 mg PO DAILY 04/12/16 12/22/16 Folic Acid 1 mg PO DAILY 04/12/16 12/22/16 Multivitamin [One Daily] 1 tab PO DAILY 04/12/16 12/22/16 Psyllium Husk [Metamucil] 1 tab PO DAILY 04/12/16 12/22/16 Aspirin [Aspirin EC] 325 mg PO DAILY 06/29/16 12/22/16 Oxybutynin [Ditropan Tab] 5 mg PO DAILY 06/29/16 12/22/16 Physical Exam - Physical Exam Narrative Physical Exam (Text): 12/22/16 17:18 - Review of Systems Constitutional: Normal. absent: Fatigue, Weight Change, Fevers Eyes: Normal ENT: denies sore throat, denies tristhmus Respiratory: Normal. absent: SOB, Cough, Sputum Cardiovascular: absent: Chest Pain, Palpitations, Syncope Gastrointestinal: Normal. absent: Abdominal Pain, Diarrhea, Nausea, Vomiting Genitourinary: Normal. absent: Dysuria, Frequency, Hematuria Musculoskeletal: back pain, Neck Pain Skin: no rashes, no erythema Neurological: absent: Focal Weakness Endocrine: Normal Hemo/Lymphatic: Normal Psychiatric: No suicidal or homicidal ideations Physical exam Patient appears age appropriate in no distress, speaking full sentences without difficulty No midline tenderness. FROM of pt's cervical, thoracic, lumbar, and sacral regions appreciated, active/passive without any difficulty. Lower extremities with full neurological and vascular intact. Steady gait. - Systems Exam Head: Present: Atraumatic, Normocephalic Pupils: Present: PERRL Extroacular Muscles: Present: EOMI Conjunctiva: Present: Normal Mouth: Present: Moist Mucous Membranes Neck: Present: Normal Range of Motion. No: MIDLINE TENDERNESS Respiratory/Chest: Present: Clear to Auscultation, Good Air Exchange. No: Respiratory Distress, Accessory Muscle Use, Tachypneic Cardiovascular: Present: Regular Rate and Rhythm, Normal S1, S2, Peripheal Pulses Present. No: Murmurs Abdomen: Present: Normal Bowel Sounds. No: Tenderness, Distention, Peritoneal Signs, Rebound, Guarding Back: No: Midline Tenderness Upper Extremity: Present: Normal Inspection. No: Cyanosis, Edema Lower Extremity: Present: Normal Inspection. No: Edema Neurological: Present: GCS=15, Speech Normal, cranial nerves II through XII fully intact with no cerebellar abnormality, neurosensory fully intact. No focal neurological deficits. Skin: Present: Warm, Dry, Normal Color. No: Rashes Lymphatic: Present: OX3, NI, NC Psychiatric: Present: Alert, Oriented x 3, Normal Insight, Normal Concentration Vital Signs Temp Pulse Resp BP Pulse Ox 12/22/16 17:17 97.9 F 66 16 142/75 99 Medical Decision Making ED Course and Treatment: 12/22/16 17:27 Patient with nonreproducible back pain going to her neck. She signed out AGAINST MEDICAL ADVICE earlier today before CAT scan was done. Study ordered 12/22/16 19:00 patient signed out to Dr. Nair in stable condition, pending imaging, reeval, dispo - RAD Interpretation Radiology Orders: 12/22/16 17:15 ANGIOGRAPHY DISECTION PROTOCOL [CT] Stat Disposition/Present on Arrival - Present on Arrival Any Indicators Present on Arrival: No History of DVT/PE: No History of Uncontrolled Diabetes: No Urinary Catheter: No History Surgical Site Infection Following: None - Disposition Have Diagnosis and Disposition been Completed?: Yes Diagnosis: Back pain Disposition Time: 19:00 Condition: STABLE
[2016-12-22] MEDS ORDERED: Iohexol 350 MG/100 ML VIAL ONE (18:20)
--- NOTE | 2016-12-22 21:07 | ED PDOC ---
Physical Exam Vital Signs Reviewed: Yes Vital Signs Temp Pulse Resp BP Pulse Ox 12/22/16 17:17 97.9 F 66 16 142/75 99 Temperature: Afebrile Blood Pressure: Normal Pulse: Regular Respiratory Rate: Normal Appearance: Positive for: Well-Appearing, Non-Toxic, Comfortable Pain Distress: None Mental Status: Positive for: Alert and Oriented X 3 - Systems Exam Head: Present: Atraumatic, Normocephalic Pupils: Present: PERRL Extroacular Muscles: Present: EOMI Conjunctiva: Present: Normal Mouth: Present: Moist Mucous Membranes Neck: Present: Normal Range of Motion Respiratory/Chest: Present: Clear to Auscultation, Good Air Exchange. No: Respiratory Distress, Accessory Muscle Use Cardiovascular: Present: Regular Rate and Rhythm, Normal S1, S2, Tachycardic. No: Murmurs Abdomen: Present: Normal Bowel Sounds. No: Tenderness, Distention, Peritoneal Signs Back: Present: Normal Inspection. No: Midline Tenderness Upper Extremity: Present: Normal Inspection. No: Cyanosis, Edema Lower Extremity: Present: Normal Inspection. No: Edema Neurological: Present: GCS=15, CN II-XII Intact, Speech Normal Skin: Present: Warm, Dry, Normal Color. No: Rashes Psychiatric: Present: Alert, Oriented x 3, Normal Insight, Normal Concentration Medical Decision Making ED Course and Treatment: 12/22/16 19:08 Case endorsed to me by Dr. Fuentes. Patient has been seen early of the day for evaluation of mid- thoracic back pain for the past few days occasionally pain radiate neck. Patient denies any history of chest pain, shortness of breathe, and any trauma. Patient signed out AMA earlier today refusing to wait for CT scan of chest to rule out any possible dissecting aneurysm. Patient was advised the need for the study prior to discharge, but refused at the time and returned to have the test done. Resulting of the CT scan is pending. Patient states her neck and back pain was much improved following treatment followed by Dr. Fuentes. Plan: -- CT Angiography -- CT Angiography Chest With intravenous Contrast -- Reassess and disposition Progress Notes: EXAM: CT Angiography Chest With Intravenous Contrast Dictated and Authenticated by: Adeel Cooper MD 12/22/2016 8:41 PM IMPRESSION: No aortic aneurysm or evidence of dissection. EXAM: CT Angiography Abdomen and Pelvis With Intravenous Contrast Dictated and Authenticated by: Adeel Cooper MD 12/22/2016 8:49 PM 1. The aorta is diffusely calcified. No aneurysm or dissection. 2. 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 3. Severe disc space narrowing at L2-L3, L3-L4, L4-5 and L5-S1 with diffuse mild central canal stenosis. 4. Focal moderate to severe grade stenosis of the proximal left superficial femoral artery. - RAD Interpretation Radiology Orders: 12/22/16 17:15 ANGIOGRAPHY DISECTION PROTOCOL [CT] Stat - Scribe Statement The provider has reviewed the documentation as recorded by the Scribe Ayse Connell Provider Scribe Attestation: All medical record entries made by the Scribe were at my direction and personally dictated by me. I have reviewed the chart and agree that the record accurately reflects my personal performance of the history, physical exam, medical decision making, and the department course for this patient. I have also personally directed, reviewed, and agree with the discharge instructions and disposition. Disposition/Present on Arrival - Present on Arrival Any Indicators Present on Arrival: No History of DVT/PE: No History of Uncontrolled Diabetes: No Urinary Catheter: No History of Decub. Ulcer: No History Surgical Site Infection Following: None - Disposition Have Diagnosis and Disposition been Completed?: Yes Diagnosis: Back pain Disposition: HOME/ ROUTINE Disposition Time: 21:22 Patient Plan: Discharge Condition: STABLE Additional Instructions: Continue your previously prescribed meds/follow up with your doctor this week Prescriptions: traMADol/Acetaminophen [Ultracet 325 MG-37.5 MG] 1 tab PO Q6 PRN #12 tab PRN Reason: Pain Referrals: Yosvany Carlson MD [Primary Care Provider] - Follow up with primary Forms: [employer] (Armenian)
[2016-12-22 21:45] VITALS: BP 136/72; PULSE 82
--- NOTE | 2016-12-23 08:53 | CT ---
PROCEDURE: CT Angiography Chest, Abdomen and Pelvis with and without intravenous contrast HISTORY: back pain COMPARISON: None. TECHNIQUE: Contiguous axial images of the chest, abdomen and pelvis were obtained in the phase of aortic enhancement. A noncontrast enhanced CT of the chest was also obtained to evaluate for possible intramural thrombus. Coronal and sagittal reformats were generated. IV dose administered: 100 cc Omnipaque 350. Radiation dose: Total exam DLP = 1027.10 mGy-cm. This CT exam was performed using one or more of the following dose reduction techniques: Automated exposure control, adjustment of the mA and/or kV according to patient size, and/or use of iterative reconstruction technique. FINDINGS: CT ANGIOGRAPHY OF THE CHEST WITH & WITHOUT CONTRAST: AORTA (CHEST AND ABDOMEN): The thoracic and abdominal aorta are tortuous, without aneurysm, dissection or rupture. No intramural thrombus identified in the thoracic aorta on the non-contrast ct of the chest. The celiac axis, superior mesenteric artery, inferior mesenteric artery and the renal arteries are widely patent. The pelvic arteries are unremarkable. LUNGS: Clear. No nodule, mass or consolidation. MEDIASTINUM: Unremarkable. Normal caliber aorta and pulmonary arterial trunk. No aortic dissection. Normal size heart. LYMPH NODES: Unremarkable. PLEURA: Unremarkable. No pneumothorax. No pleural fluid. BONES: Unremarkable. OTHER FINDINGS: None. CT ANGIOGRAPHY OF THE ABDOMEN AND PELVIS WITH CONTRAST: LIVER: Unremarkable. No gross lesion or ductal dilatation. GALLBLADDER AND BILE DUCTS: Unremarkable. PANCREAS: Unremarkable. No gross lesion or ductal dilatation. SPLEEN: Unremarkable. ADRENALS: Unremarkable. No mass. KIDNEYS AND URETERS: Unremarkable. No hydronephrosis. No solid mass. VASCULATURE: Unremarkable. No aortic aneurysm. STOMACH AND BOWEL: Diverticulosis without an acute inflammatory component or other associated pathologic process. Constipation without fecal impaction or obstruction. APPENDIX: Normal appendix. PERITONEUM: Unremarkable. No free fluid. No free air. LYMPH NODES: Unremarkable. No enlarged lymph nodes. BLADDER: Unremarkable. REPRODUCTIVE: Unremarkable. BONES: No acute fracture. Scoliosis, secondary degenerative change at multiple levels. OTHER FINDINGS: None. IMPRESSION: Negative study for aortic dissection, aneurysm or other acute vascular abnormality. Additional benign and/or incidental findings described above. Concordant results (preliminary interpretation) provided by [facility]. Procedure Completed: 19:33 Preliminary ([facility]) Report: Dictated and Authenticated: 20:41 Final Interpretation: 08:52 December 23, 2016.
== END 2016-12-22 21:45 | disposition home or self-care (01) ==
LOC: ED 17:05
DX: M54.9 Dorsalgia, unspecified (principal); I10 Essential (primary) hypertension; Z87.891 Personal history of nicotine dependence
CPT/HCPCS: 71275; 74175; 99283; Q9967

== ENCOUNTER 2017-03-05 09:59 | Emergency (ER) | payer MEDICARE ==
[2017-03-05 09:59] VITALS: BMI 23.3
[2017-03-05 10:30] VITALS: TEMP 98.5; O2SAT 98
--- NOTE | 2017-03-05 10:41 | ED PDOC ---
Arrival/HPI - General Chief Complaint: Abnormal Skin Integrity Time Seen by Provider: 03/05/17 10:32 Historian: Patient - History of Present Illness Narrative History of Present Illness (Text): 03/05/17 10:38 81yo female with Past medical history of hypertension, hyperlipdemia, dementia , who present with complaint of painful rash to left sided mid back x 3days. States it became increasingly painful. Did not take any medication. Denies fever , chills, neck pain, nausea, vomiting, inciting factors. Past Medical History - Provider Review Nursing Documentation Reviewed: Yes - Infectious Disease Hx of Infectious Diseases: None - Tetanus Immunization Tetanus Immunization: Unknown - Reproductive Menopause: Yes - Cardiac Hx Cardiac Disorders: Yes Hx Hypertension: Yes Hx Peripheral Vascular Disease: Yes - Pulmonary Hx Respiratory Disorders: No - Neurological Hx Neurological Disorder: Yes Hx Dementia: Yes - HEENT Hx HEENT Disorder: Yes (wears glasses) Hx Cataracts: Yes (bilateral) - Renal Hx Renal Disorder: No - Endocrine/Metabolic Hx Endocrine Disorders: No - Hematological/Oncological Hx Blood Disorders: No - Integumentary Hx Dermatological Disorder: No - Musculoskeletal/Rheumatological Hx Musculoskeletal Disorders: Yes Hx Back Pain: Yes (degenerative disc disease of spine) Hx Falls: No Hx Osteoarthritis: Yes - Gastrointestinal Hx Gastrointestinal Disorders: No - Genitourinary/Gynecological Hx Genitourinary Disorders: Yes Hx Incontinence: Yes Other/Comment: bladder prolapse with lift - Psychiatric Hx Psychophysiologic Disorder: No Hx Substance Use: No - Surgical History Hx Cardiac Catheterization: Yes Hx Coronary Stent: Yes Hx Hysterectomy: Yes Other/Comment: Bladder lift - Anesthesia Hx Anesthesia Reactions: No Hx Malignant Hyperthermia: No - Suicidal Assessment Feels Threatened In Home Enviroment: No Family/Social History - Physician Review Nursing Documentation Reviewed: Yes Family/Social History: Unknown Family HX Smoking Status: Former Smoker Hx Alcohol Use: No Hx Substance Use: No Hx Substance Use Treatment: No Allergies/Home Meds Allergies/Adverse Reactions: Allergies Penicillins Allergy (Severe, Verified 12/22/16 17:15) RASH Home Medications: Home Meds Medication Instructions Recorded Confirmed Metoprolol Succinate 50 mg PO DAILY 09/08/14 12/22/16 Atorvastatin Calcium [Lipitor] 40 mg PO DAILY 11/10/14 12/22/16 Cholecalciferol (Vitamin D3) 1,000 mg PO DAILY 02/12/15 12/22/16 [Vitamin D3] Calcium Carbonate [Calcium] 500 mg PO DAILY 04/12/16 12/22/16 Folic Acid 1 mg PO DAILY 04/12/16 12/22/16 Multivitamin [One Daily] 1 tab PO DAILY 04/12/16 12/22/16 Psyllium Husk [Metamucil] 1 tab PO DAILY 04/12/16 12/22/16 Aspirin [Aspirin EC] 325 mg PO DAILY 06/29/16 12/22/16 Oxybutynin [Ditropan Tab] 5 mg PO DAILY 06/29/16 12/22/16 Review of Systems - Physician Review All systems were reviewed & negative as marked: Yes - Review of Systems Constitutional: Normal Eyes: Normal ENT: Normal Respiratory: Normal Cardiovascular: Normal Gastrointestinal: Normal Genitourinary Female: Normal Musculoskeletal: Normal Skin: Rash Neurological: Normal Endocrine: Normal Hemo/Lymphatic: Normal Psychiatric: Normal Physical Exam Vital Signs Reviewed: Yes Vital Signs Temp Pulse Resp BP Pulse Ox 03/05/17 10:27 98.5 F 66 16 136/78 98 Temperature: Afebrile Blood Pressure: Normal Pulse: Regular Respiratory Rate: Normal Appearance: Positive for: Well-Appearing, Non-Toxic, Comfortable Pain Distress: None Mental Status: Positive for: Alert and Oriented X 3 - Systems Exam Head: Present: Atraumatic, Normocephalic Pupils: Present: PERRL Extroacular Muscles: Present: EOMI Conjunctiva: Present: Normal Mouth: Present: Moist Mucous Membranes Neck: Present: Normal Range of Motion Respiratory/Chest: Present: Clear to Auscultation, Good Air Exchange. No: Respiratory Distress, Accessory Muscle Use Cardiovascular: Present: Regular Rate and Rhythm, Normal S1, S2. No: Murmurs Abdomen: Present: Normal Bowel Sounds. No: Tenderness, Distention, Peritoneal Signs Back: Present: Normal Inspection Upper Extremity: Present: Normal Inspection. No: Cyanosis, Edema Lower Extremity: Present: Normal Inspection. No: Edema Neurological: Present: GCS=15, CN II-XII Intact, Speech Normal Skin: Present: Warm, Dry, Rashes (Erythematous patch with overlaying vesicle noted to left mid back/dermatomal), Normal Color Psychiatric: Present: Alert, Oriented x 3, Normal Insight, Normal Concentration Disposition/Present on Arrival - Present on Arrival Any Indicators Present on Arrival: No History of DVT/PE: No History of Uncontrolled Diabetes: No Urinary Catheter: No History of Decub. Ulcer: No History Surgical Site Infection Following: None - Disposition Have Diagnosis and Disposition been Completed?: Yes Diagnosis: Herpes zoster Disposition: HOME/ ROUTINE Disposition Time: 10:50 Patient Plan: Discharge Condition: STABLE Discharge Instructions (ExitCare): Shingles (ED) Additional Instructions: Take medication as directed follow up with your doctor Return to Emergency department for any new or worsening symptoms Prescriptions: valACYclovir [Valtrex] 1 gm PO TID #21 tab Referrals: [facility] at [facility] [place] [Outside] - Follow up with primary
[2017-03-05 11:12] VITALS: BP 132/71; PULSE 67; RESP 18
== END 2017-03-05 11:30 | disposition home or self-care (01) ==
LOC: ED 09:59
DX: B02.9 Zoster without complications (principal)

== ENCOUNTER 2017-07-23 14:36 | Emergency (ER) | payer MEDICARE ==
--- NOTE | 2017-07-23 15:26 | ED PDOC ---
Arrival/HPI <Annie Giordano - Last Filed: 07/23/17 15:22> <Pawan Mojica DO - Last Filed: 07/23/17 18:40> - General Time Seen by Provider: 07/23/17 15:13 - History of Present Illness Narrative History of Present Illness (Text): 07/23/17 15:22 Patient is an 81 year old female who presents to the ED complaining of left hand pain after falling this morning. Patient says she was bending over the pick something up in the carpet and tripped as she was leaning forward so she threw her hand out to catch herself. Patient says she started noticing bruising and swelling so she decided to come to the ED to have it evaluated. Patient says her pain is currently a 5/10. Patient says the pain is worsened when she flexes/extends the wrist. She denies hitting her head, LOC, dizziness, numbness and tingling in the hand/arm, and radiation of the pain up the arm. (Annie Giordano) Past Medical History - Infectious Disease Hx of Infectious Diseases: None - Tetanus Immunization Tetanus Immunization: Unknown - Cardiac Hx Cardiac Disorders: Yes Hx Hypertension: Yes Hx Peripheral Vascular Disease: Yes - Pulmonary Hx Respiratory Disorders: No - Neurological Hx Neurological Disorder: Yes Hx Dementia: Yes - HEENT Hx HEENT Disorder: Yes (wears glasses) Hx Cataracts: Yes (bilateral) - Renal Hx Renal Disorder: No - Endocrine/Metabolic Hx Endocrine Disorders: No - Hematological/Oncological Hx Blood Disorders: No - Integumentary Hx Dermatological Disorder: No - Musculoskeletal/Rheumatological Hx Musculoskeletal Disorders: Yes Hx Back Pain: Yes (degenerative disc disease of spine) Hx Falls: No Hx Osteoarthritis: Yes - Gastrointestinal Hx Gastrointestinal Disorders: No - Genitourinary/Gynecological Hx Genitourinary Disorders: Yes Hx Incontinence: Yes Other/Comment: bladder prolapse with lift - Psychiatric Hx Psychophysiologic Disorder: No Hx Substance Use: No - Surgical History Hx Cardiac Catheterization: Yes Hx Coronary Stent: Yes Hx Hysterectomy: Yes Other/Comment: Bladder lift - Anesthesia Hx Anesthesia Reactions: No Hx Malignant Hyperthermia: No - Suicidal Assessment Feels Threatened In Home Enviroment: No <Annie Giordano - Last Filed: 07/23/17 15:22> Family/Social History Family/Social History: No Known Family HX Smoking Status: Former Smoker Hx Alcohol Use: No Hx Substance Use: No Hx Substance Use Treatment: No <PasqualeAnnie - Last Filed: 07/23/17 15:22> Allergies/Home Meds <Annie Giordano - Last Filed: 07/23/17 15:22> <Pawan Mojica DO - Last Filed: 07/23/17 18:40> Allergies/Adverse Reactions: Allergies Penicillins Allergy (Severe, Verified 07/23/17 15:25) RASH Home Medications: Home Meds Medication Instructions Recorded Confirmed Metoprolol Succinate 50 mg PO DAILY 09/08/14 07/23/17 Atorvastatin Calcium [Lipitor] 40 mg PO DAILY 11/10/14 07/23/17 Cholecalciferol (Vitamin D3) 1,000 mg PO DAILY 02/12/15 07/23/17 [Vitamin D3] Calcium Carbonate [Calcium] 500 mg PO DAILY 04/12/16 07/23/17 Folic Acid 1 mg PO DAILY 04/12/16 07/23/17 Multivitamin [One Daily] 1 tab PO DAILY 04/12/16 07/23/17 Psyllium Husk [Metamucil] 1 tab PO DAILY 04/12/16 07/23/17 Aspirin [Aspirin EC] 325 mg PO DAILY 06/29/16 07/23/17 Oxybutynin [Ditropan Tab] 5 mg PO DAILY 06/29/16 07/23/17 Review of Systems - Review of Systems Constitutional: Normal Eyes: Normal ENT: Normal Respiratory: Normal Cardiovascular: Normal Gastrointestinal: Normal Musculoskeletal: Other (swelling, pain, and bruising of the left hand) Skin: Normal. absent: Skin Lesions, Laceration Neurological: Normal. absent: Headache, Dizziness, Disequilibrium Endocrine: Normal Hemo/Lymphatic: Normal Psychiatric: Normal <Annie Giordano - Last Filed: 07/23/17 15:22> Physical Exam - Systems Exam Head: Present: Atraumatic, Normocephalic Pupils: Present: PERRL Extroacular Muscles: Present: EOMI Conjunctiva: Present: Normal Mouth: Present: Moist Mucous Membranes Neck: Present: Normal Range of Motion. No: MIDLINE TENDERNESS, Paraspinal Tenderness Respiratory/Chest: Present: Clear to Auscultation, Good Air Exchange. No: Respiratory Distress, Accessory Muscle Use Cardiovascular: Present: Regular Rate and Rhythm, Murmurs (systolic, heard best at the right 2nd intercostal space), Normal S1, S2 Abdomen: Present: Normal Bowel Sounds. No: Tenderness, Distention, Peritoneal Signs Back: Present: Normal Inspection. No: Midline Tenderness, Paraspinal Tenderness Upper Extremity: Present: Swelling (left hand), Neurovascularly Intact, Capillary Refill < 2s Lower Extremity: Present: Normal Inspection, Normal ROM. No: CALF TENDERNESS, Tenderness Neurological: Present: GCS=15, Speech Normal Skin: Present: Warm, Dry. No: Rashes Psychiatric: Present: Alert, Oriented x 3, Normal Insight, Normal Concentration <Annie Giordano - Last Filed: 07/23/17 15:22> Vital Signs Temp Pulse Resp BP Pulse Ox 07/23/17 17:00 98 F 65 18 159/75 H 99 07/23/17 15:24 98.8 F 75 20 161/93 H 96 - RAD Interpretation Radiology Orders: 07/23/17 15:32 HAND LEFT 3 VIEWS ROUTINE [RAD] Stat WRIST, LEFT 3 VIEWS [RAD] Stat - Medication Orders Current Medication Orders: Discontinued Medications Acetaminophen (Tylenol 325mg Tab) 650 mg PO STAT STA Stop: 07/23/17 17:24 Last Admin: 07/23/17 17:31 Dose: 650 mg MAR Pain/Vitals Document 07/23/17 17:31 [place] (Rec: 07/23/17 17:33 [place] [facility] [place]-[facility]) Pain Reassessment Is This A Pain ReAssessment? No Sleep Is patient sleeping during reassessment? No Presence of Pain Presence of Pain Yes Pain Scale Used Pain Scale Used Numeric Location Left, Right or Bilateral Left Pain Location Body Site Arm Description Throbbing Intensity 6 Scale Used Numeric Pain Behavior Guarding - PA / SPOT MACHINE OPERATOR / Resident Statement SHAWNA has reviewed & agrees with the documentation as recorded. SHAWNA has examined the patient and agrees with the treatment plan. <Annie Giordano - Last Filed: 07/23/17 15:22> - PA / SPOT MACHINE OPERATOR / Resident Statement SHAWNA has reviewed & agrees with the documentation as recorded. SHAWNA has examined the patient and agrees with the treatment plan. <Pawan Mojica DO - Last Filed: 07/23/17 18:40> Disposition/Present on Arrival - Present on Arrival History of DVT/PE: No History of Uncontrolled Diabetes: No Urinary Catheter: No History Surgical Site Infection Following: None <Annie Giordano - Last Filed: 07/23/17 15:22> - Present on Arrival Any Indicators Present on Arrival: No - Disposition Have Diagnosis and Disposition been Completed?: Yes Disposition Time: 17:25 <Shamekajake Pawan LASSITER - Last Filed: 07/23/17 18:40> - Disposition Diagnosis: Hand contusion, Wrist contusion Disposition: HOME/ ROUTINE Condition: GOOD Discharge Instructions (ExitCare): Contusion (DC) Additional Instructions: Thank you for letting us take care of you today. The emergency medical care you received today was directed at your acute symptoms. If you were prescribed any medication, please fill it and take as directed. It may take several days for your symptoms to resolve. Return to the Emergency Department if your symptoms worsen, do not improve, or if you have any other problems. Please contact your doctor or call one of the physicians/clinics you have been referred to that are listed on the Patient Visit Information form that is included in your discharge packet. Bring any paperwork you were given at discharge with you along with any medications you are taking to your follow up visit. Our treatment cannot replace ongoing medical care by a primary care provider (PCP) outside of the emergency department. Thank you for allowing the [facility] team to be part of your care today. Followup with your primary doctor in 2-3 days for re-evaluation and further management. Prescriptions: Ibuprofen [Motrin] 400 mg PO Q6 PRN #20 tab PRN Reason: Pain, Moderate (4-7) Referrals: Yosvany Carlson MD [Primary Care Provider] - Follow up with primary Forms: [employer] (Yoruba)
[2017-07-23 15:30] VITALS: BMI 21.7
--- NOTE | 2017-07-23 17:06 | RAD ---
PROCEDURE: Left Wrist Radiographs. HISTORY: fall, hand pain/swelling COMPARISON: None. FINDINGS: BONES: No acute fractures. JOINTS: Stable widening of the scapholunate joint. Degenerative changes involving the scaphoid trapezium and lunate capitate. Osteoarthritic changes, severe affecting the carpal 1st metacarpal bone. SOFT TISSUES: Normal. OTHER FINDINGS: None. IMPRESSION: Severe degenerative change. No acute findings.
--- NOTE | 2017-07-23 17:07 | RAD ---
PROCEDURE: Left Hand Radiographs. HISTORY: fall, hand pain/swelling COMPARISON: July 23, 2017. . Left wrist reported separately FINDINGS: BONES: Normal. No fracture. JOINTS: Osteoarthritic changes carpal 1st metacarpal joint. Juxta-articular osteopenia identified without erosive change. SOFT TISSUES: Normal. OTHER FINDINGS: None. IMPRESSION: No acute findings related to/accounting for the clinical presentation. Additional benign and/or incidental findings described above.
[2017-07-23 17:52] VITALS: BP 159/75; PULSE 65; RESP 18; TEMP 98; O2SAT 99
== END 2017-07-23 17:55 | disposition home or self-care (01) ==
LOC: ED 14:36
DX: S60.212A Contusion of left wrist, initial encounter (principal); W01.0XXA Fall on same level from slipping, tripping and stumbling without subsequent striking against object, initial encounter; Y92.89 Other specified places as the place of occurrence of the external cause

== ENCOUNTER 2017-09-27 12:58 | Emergency (ER) | payer MEDICARE ==
[2017-09-27 13:16] VITALS: BMI 24.2
--- NOTE | 2017-09-27 14:00 | ED PDOC ---
Arrival/HPI - General Chief Complaint: Female Genitourinary Time Seen by Provider: 09/27/17 13:45 Historian: Patient - History of Present Illness Narrative History of Present Illness (Text): 09/27/17 14:00 81 year old female, whose PMH includes MS, hypertension, COPD, cardiac catheterization, and coronary stent, who presents to the emergency department complaining of intermittent vaginal pain since 10 days. Patent reports the pain comes and goes, but this morning it was more painful compared to other days. Patient denies fever, dysuria, hematuria, shortness of breath, vaginal bleeding , back pain, abdominal pain, or other complaints. Time/Duration: > week Symptom Onset: Sudden Symptom Course: Intermittent Activities at Onset: Rest Context: Home Past Medical History - Provider Review Nursing Documentation Reviewed: Yes - Infectious Disease Hx of Infectious Diseases: None - Tetanus Immunization Tetanus Immunization: Unknown - Cardiac Hx Cardiac Disorders: Yes Hx MS: Yes Hx Hypertension: Yes - Pulmonary Hx Respiratory Disorders: Yes Hx Chronic Obstructive Pulmonary Disease (COPD): Yes - Neurological Hx Neurological Disorder: Yes Hx Dementia: Yes - HEENT Hx HEENT Disorder: Yes (wears glasses) Hx Cataracts: Yes (bilateral) - Renal Hx Renal Disorder: No - Endocrine/Metabolic Hx Endocrine Disorders: No - Hematological/Oncological Hx Blood Disorders: No - Integumentary Hx Dermatological Disorder: No - Musculoskeletal/Rheumatological Hx Musculoskeletal Disorders: Yes Hx Back Pain: Yes (degenerative disc disease of spine) Hx Falls: No Hx Osteoarthritis: Yes - Gastrointestinal Hx Gastrointestinal Disorders: No - Genitourinary/Gynecological Hx Genitourinary Disorders: Yes Hx Incontinence: Yes Other/Comment: bladder prolapse with lift - Psychiatric Hx Psychophysiologic Disorder: No Hx Substance Use: No - Surgical History Hx Cardiac Catheterization: Yes Hx Coronary Stent: Yes Hx Hysterectomy: Yes Other/Comment: Bladder lift - Anesthesia Hx Anesthesia Reactions: No Hx Malignant Hyperthermia: No - Suicidal Assessment Feels Threatened In Home Enviroment: No Family/Social History - Physician Review Nursing Documentation Reviewed: Yes Family/Social History: Unknown Family HX Smoking Status: Former Smoker Hx Alcohol Use: No Hx Substance Use: No Hx Substance Use Treatment: No Allergies/Home Meds Allergies/Adverse Reactions: Allergies Penicillins Allergy (Severe, Verified 09/27/17 13:15) RASH Home Medications: Home Meds Medication Instructions Recorded Confirmed Metoprolol Succinate 50 mg PO DAILY 09/08/14 09/27/17 Atorvastatin Calcium [Lipitor] 40 mg PO DAILY 11/10/14 09/27/17 Folic Acid 1 mg PO DAILY 04/12/16 09/27/17 Multivitamin [One Daily] 1 tab PO DAILY 04/12/16 09/27/17 Psyllium Husk [Metamucil] 1 tab PO DAILY 04/12/16 09/27/17 Oxybutynin [Ditropan Tab] 5 mg PO DAILY 06/29/16 09/27/17 Review of Systems - Physician Review All systems were reviewed & negative as marked: Yes - Review of Systems Constitutional: absent: Fevers Gastrointestinal: absent: Abdominal Pain Genitourinary Female: Other (Vaginal pain ) Physical Exam - Physical Exam Narrative Physical Exam (Text): 09/27/17 Gen: VS reviewed, alert, well developed, well nourished, nontoxic, mild distress. ENT: normal pharynx. Eye: EOMI, PERRL. Neck: no JVD, supple, no adenopathy. CV: regular rate, regular rhythm, no rubs, no murmur, no gallops, S1, S2, pulses equal and strong. Pulm: no distress, clear to auscultation, no wheeze, no rhonchi, breath sounds equal, no rales. Abd: soft, nontender, no guarding, no rebound, no rigidity, normal bowel sounds. Pelvic exam: (+) mild right vaginal discharge, suspicion yeast infection. Slip Injector And Applicator: Nurse Lilly Ext: no edema. Skin: good color, no rash, no cyanosis. Psych: responds appropriately to questions, normal affect. Neuro: oriented x 3, CN2-12 intact grossly, motor intact, sensation intact. Vital Signs Reviewed: Yes Vital Signs Temp Pulse Resp BP Pulse Ox 09/27/17 13:16 98 F 73 17 103/70 96 Temperature: Afebrile Blood Pressure: Normal Pulse: Regular Respiratory Rate: Normal Appearance: Positive for: Well-Appearing, Non-Toxic, Comfortable Pain Distress: None Mental Status: Positive for: Alert and Oriented X 3 Medical Decision Making ED Course and Treatment: 09/27/17 Impression: 81 year old female with mild right vaginal discharge complaining of vaginal pain. Plan: -- Urinalysis -- Labs -- Reassess and disposition Progress Notes: 0 09/27/17 16:11 patient seen for dysuria and vaginal discharge. will tx for uncomplicated uti and yeast vaginitis. refer to see anesthesiologist for comprehensive vaginal exam. - Lab Interpretations Lab Results: Lab Results 09/27/17 14:57: Urine Color Yellow, Urine Appearance Slight-cloudy, Urine pH 6.5 , Ur Specific [place] 1.015, Urine Protein Negative, Urine Glucose (UA) Negative , Urine Ketones Trace H, Urine Blood Small H, Urine Nitrate Positive H, Urine Bilirubin Negative, Urine Urobilinogen 0.2, Ur Leukocyte Esterase Moderate H, Urine RBC 1 - 3, Urine WBC 20 - 25, Ur Epithelial Cells 1 - 3, Urine Bacteria Mod I have reviewed the lab results: Yes - Scribe Statement The provider has reviewed the documentation as recorded by the Summeribe Brielle Ramsey Provider Scribe Attestation: All medical record entries made by the Scribe were at my direction and personally dictated by me. I have reviewed the chart and agree that the record accurately reflects my personal performance of the history, physical exam, medical decision making, and the department course for this patient. I have also personally directed, reviewed, and agree with the discharge instructions and disposition. Disposition/Present on Arrival - Present on Arrival Any Indicators Present on Arrival: No History of DVT/PE: No History of Uncontrolled Diabetes: No Urinary Catheter: No History of Decub. Ulcer: No History Surgical Site Infection Following: None - Disposition Have Diagnosis and Disposition been Completed?: Yes Diagnosis: UTI (urinary tract infection), Vaginitis due to [place] Disposition: HOME/ ROUTINE Disposition Time: 16:13 Patient Plan: Discharge Condition: GOOD Discharge Instructions (ExitCare): Vulvovaginal Yeast Infection, Urinary Tract Infections in Adults Print Language: CITIZEN OF [place] Additional Instructions: you must follow up with your pet food deboner for further evaluation of the vaginal irritation. take the antibiotics to treat the urine infection. you were already treated for a vaginal yeast infection in the emergency department. Prescriptions: Nitrofurantoin Macrocrystal [Nitrofurantoin] 100 mg PO BID #14 capsule Forms: [employer] (Bulgarian)
[2017-09-27 15:30] LABS: PH,URINE 6.5 (4.7-8.0); URINE BILIRUBIN NEGATIVE (NEGATIVE); URINE BLOOD SMALL (NEGATIVE); URINE GLUCOSE (UA) NEGATIVE (NEGATIVE); URINE LEUKOCYTE ESTERASE MODERATE Leu/uL (NEGATIVE); URINE PROTEIN NEGATIVE mg/dL (<30 mg/dL); URINE UROBILINOGEN 0.2 E.U./dL (<1 E.U./dL)
[2017-09-27 15:33] LABS: URINE APPEARANCE SLIGHT-CLOUDY (CLEAR); URINE COLOR YELLOW (YELLOW)
[2017-09-27 15:38] LABS: URINE BACTERIA MOD (NEG); URINE WBC 20 - 25 /hpf (0-6)
[2017-09-27 16:49] VITALS: PULSE 61; RESP 18; O2SAT 99
[2017-09-27 16:52] VITALS: TEMP 97.8
[2017-09-27 17:14] VITALS: BP 150/89
== END 2017-09-27 16:55 | disposition home or self-care (01) ==
LOC: ED 12:58
DX: N39.0 Urinary tract infection, site not specified (principal); B37.3 Candidiasis of vulva and vagina

== ENCOUNTER 2017-10-18 13:24 | Emergency (ER) | payer MEDICARE ==
[2017-10-18 13:24] VITALS: BMI 24.2
[2017-10-18 13:38] VITALS: PULSE 82; TEMP 98.2; O2SAT 96
--- NOTE | 2017-10-18 13:47 | ED PDOC ---
Arrival/HPI - General Chief Complaint: Female Genitourinary Time Seen by Provider: 10/18/17 13:28 Historian: Patient, Family (daughter Katharina from [place] via phone) - History of Present Illness Narrative History of Present Illness (Text): 10/18/17 13:44 82 year old female, with no significant past medical history, who presents to the emergency department complaining of a discomfort in the vagina for 5-6 days. Patient visited the emergency department on 09/27/17 for similar symptoms and was diagnosed with a UTI. Patient denies any back pain, fever, chills, chest pain, neck pain, shortness of breath, nausea, vomiting, or any other complaints. Time/Duration: < week Symptom Onset: Gradual Symptom Course: Unchanged Activities at Onset: Light Context: Home Past Medical History - Provider Review Nursing Documentation Reviewed: Yes - Infectious Disease Hx of Infectious Diseases: None - Tetanus Immunization Tetanus Immunization: Unknown - Cardiac Hx Cardiac Disorders: Yes Hx ID: Yes Hx Hypertension: Yes - Pulmonary Hx Respiratory Disorders: Yes Hx Chronic Obstructive Pulmonary Disease (COPD): Yes - Neurological Hx Neurological Disorder: Yes Hx Dementia: Yes - HEENT Hx HEENT Disorder: Yes (wears glasses) Hx Cataracts: Yes (bilateral) - Renal Hx Renal Disorder: No - Endocrine/Metabolic Hx Endocrine Disorders: No - Hematological/Oncological Hx Blood Disorders: No - Integumentary Hx Dermatological Disorder: No - Musculoskeletal/Rheumatological Hx Musculoskeletal Disorders: Yes Hx Back Pain: Yes Hx Osteoarthritis: Yes - Gastrointestinal Hx Gastrointestinal Disorders: No - Genitourinary/Gynecological Hx Genitourinary Disorders: Yes Hx Incontinence: Yes Other/Comment: bladder prolapse with lift - Psychiatric Hx Psychophysiologic Disorder: No Hx Substance Use: No - Surgical History Hx Cardiac Catheterization: Yes Hx Coronary Stent: Yes Hx Hysterectomy: Yes Other/Comment: Bladder lift - Anesthesia Hx Anesthesia Reactions: No Hx Malignant Hyperthermia: No - Suicidal Assessment Feels Threatened In Home Enviroment: No Family/Social History - Physician Review Nursing Documentation Reviewed: Yes Family/Social History: Unknown Family HX Smoking Status: Former Smoker Hx Alcohol Use: No Hx Substance Use: No Hx Substance Use Treatment: No Allergies/Home Meds Allergies/Adverse Reactions: Allergies Penicillins Allergy (Severe, Verified 10/18/17 13:26) RASH Home Medications: Home Meds Medication Instructions Recorded Confirmed Metoprolol Succinate 50 mg PO DAILY 09/08/14 10/18/17 Atorvastatin Calcium [Lipitor] 40 mg PO DAILY 11/10/14 10/18/17 Folic Acid 1 mg PO DAILY 04/12/16 10/18/17 Multivitamin [One Daily] 1 tab PO DAILY 04/12/16 10/18/17 Psyllium Husk [Metamucil] 1 tab PO DAILY 04/12/16 10/18/17 Review of Systems - Review of Systems Constitutional: absent: Fatigue, Fevers Respiratory: absent: SOB Cardiovascular: absent: Chest Pain Gastrointestinal: absent: Abdominal Pain Genitourinary Female: Dysuria, Frequency, Vaginal Discharge. absent: Hematuria , Urine Output Changes, Vaginal Bleeding Musculoskeletal: absent: Back Pain Skin: absent: Rash Neurological: absent: Headache, Focal Weakness Physical Exam Vital Signs Reviewed: Yes Vital Signs Temp Pulse Resp BP Pulse Ox 10/18/17 15:15 18 113/68 96 10/18/17 13:28 98.2 F 82 16 106/71 96 Temperature: Afebrile Appearance: Positive for: Well-Appearing, Non-Toxic Pain Distress: None Mental Status: Positive for: Alert and Oriented X 3 - Systems Exam Head: Present: Atraumatic Mouth: Present: Moist Mucous Membranes Pharnyx: No: ERYTHEMA, EXUDATE Neck: Present: Normal Range of Motion. No: Meningeal Signs Respiratory/Chest: Present: Clear to Auscultation Cardiovascular: Present: Regular Rate and Rhythm Abdomen: Present: Other (very MILD suprapubic discomfort, no masses palpated, no lateral pain, no upper abdominal pain) Genitourinary/Pelvic Exam: Present: Other (pelvic exam chaperoned by Maribel CONNOR, there is no active bleeding, no erythema or pus or significant discharge) Back: No: CVA Tenderness Upper Extremity: No: Edema Lower Extremity: No: Edema Neurological: Present: Normal Sensory Function Skin: Present: Warm Psychiatric: Present: Alert, Other (she is able to recall last visit to ER but does not recall whether she had follow-up) Medical Decision Making ED Course and Treatment: 10/18/17 13:47 Impression: 82 year old female presents to the emergency department complaining of vaginal discomfort x 5-6 days. Plan: -- Urine Culture -- UA -- Reassess and disposition Progress Notes: Patient's prior ER visit reviewed. 10/18/17 13:49 Urine culture from previous emergency department visit on 09/27/17 showed E.Coli. She was treated during prior visit with Nitrofurantoin and patient states her symptoms at that time resolved completely. She is uncertain whether she followed-up with light bulb replacer or PMD. 10/18/17 14:40 Pt gave permission to speak with her daughter Katharina, from [place]. She reports to me patient did follow-up with Dr. Lindquist. Explained pt treatment plan and need for close follow up. Case discussed with pt PMD, Dr. Carlson to better ensure follow-up. I reviewed Urinalysis results with patient, family Katharina, and Dr. Carlson. She is at her baseline mental status as reviewed with PMD and Katharina, and they will follow-up with her regarding urology and gynecology follow-up. As she is afebrile, urinating without difficulty, no cva tenderness, no fever, no vomiting, no chills, she will be discharged. I have reviewed with family, patient and PMD that urine culture will be sent and requires follow-up. Antibiotics prescribed. Follow-up and results reviewed with patient in laymen's terms. Dr. Carlson states office will call her for follow-up of her symptoms. She has prior cardiac history noted. She denies any chest pain, shortness of breath or lightheadedness, denies any other symptoms at this time. - Lab Interpretations Microbiology Results: Microbiology Results 10/18/17 14:00 Urine Urine Culture - Preliminary Gram Negative Primo Lab Results: Lab Results 10/18/17 14:00: Urine Color Yellow, Urine Appearance Turbid, Urine pH 6.5, Ur Specific [place] 1.015, Urine Protein 30 H, Urine Glucose (UA) Negative, Urine Ketones Negative, Urine Blood Moderate H, Urine Nitrate Positive H, Urine Bilirubin Negative, Urine Urobilinogen 0.2, Ur Leukocyte Esterase Large H, Urine RBC 1 - 3, Urine WBC Tntc, Urine Bacteria Many - Scribe Statement The provider has reviewed the documentation as recorded by the Scribxin Chaves All medical record entries made by the Scribe were at my direction and personally dictated by me. I have reviewed the chart and agree that the record accurately reflects my personal performance of the history, physical exam, medical decision making, and the department course for this patient. I have also personally directed, reviewed, and agree with the discharge instructions and disposition. Disposition/Present on Arrival - Present on Arrival Any Indicators Present on Arrival: No History of DVT/PE: No History of Uncontrolled Diabetes: No Urinary Catheter: No History of Decub. Ulcer: No History Surgical Site Infection Following: None - Disposition Have Diagnosis and Disposition been Completed?: Yes Diagnosis: Urinary tract infection Disposition: HOME/ ROUTINE Disposition Time: 15:00 Patient Plan: Discharge Condition: GOOD Discharge Instructions (ExitCare): Urinary Tract Infection, Adult (DC) Additional Instructions: I have reviewed your results with Katharina, your daughter with your permission, as well as with your doctor, Dr. Carlson. Your urine results are consistent with a urinary tract infection. Take antibiotics as directed. Please follow-up with your urologist DR. Davis and your light bulb replacer DR. Lindquist as discussed this week. Dr. Carlson will follow-up with you via phone as well in the next few days. RETURN TO THE EMERGENCY DEPARTMENT f you have ANY fever, any chest pain, any shortness of breath, any abdominal pain, any back pain, any nausea or vomiting, any new or persistent symptoms. A urine culture has been sent you will be called if there is an abnormal result that requires change in treatment. I have discussed your treatment plan with your daughter and physician. Prescriptions: Nitrofurantoin Macrocrystal [Nitrofurantoin] 100 mg PO BID #14 capsule Referrals: Yosvany Carlson MD [Primary Care Provider] - Follow up with primary Carrol Lindquist MD [Medical Doctor] - Follow up with primary Sancho Davis MD [Staff Provider] - Follow up with primary Forms: [employer] (Finnish)
[2017-10-18 14:16] LABS: PH,URINE 6.5 (4.7-8.0); URINE APPEARANCE TURBID (CLEAR); URINE BILIRUBIN NEGATIVE (NEGATIVE); URINE BLOOD MODERATE (NEGATIVE); URINE COLOR YELLOW (YELLOW); URINE GLUCOSE (UA) NEGATIVE (NEGATIVE); URINE LEUKOCYTE ESTERASE LARGE Leu/uL (NEGATIVE); URINE PROTEIN 30 mg/dL (<30 mg/dL); URINE UROBILINOGEN 0.2 E.U./dL (<1 E.U./dL)
[2017-10-18 14:19] LABS: URINE BACTERIA MANY (NEG); URINE WBC TNTC /hpf (0-6)
[2017-10-18 15:17] VITALS: BP 113/68; RESP 18
== END 2017-10-18 15:13 | disposition home or self-care (01) ==
LOC: ED 13:24
DX: N39.0 Urinary tract infection, site not specified (principal); I10 Essential (primary) hypertension; Z87.891 Personal history of nicotine dependence

== ENCOUNTER 2018-01-28 13:54 | Emergency (ER) | payer MEDICARE ==
[2018-01-28 13:55] VITALS: BMI 24.2
[2018-01-28 14:01] VITALS: O2SAT 99
--- NOTE | 2018-01-28 14:03 | ED PDOC ---
Arrival/HPI - General Chief Complaint: Back Pain Historian: Patient - History of Present Illness Time/Duration: Other (yesterday) Symptom Onset: Gradual Symptom Course: Worsening Quality: Aching Severity Level: Moderate Activities at Onset: Rest Associated Symptoms (Text): 01/28/18 14:01 Patient complains of left mid back pain beginning yesterday. No injury or trauma. No radiation. No abdominal pain nausea vomiting diarrhea constipation or GI bleed. No dysuria frequency urgency or hematuria. No numbness tingling or paresthesias. No lower extremity pain. She has developed an erythematous rash in the back. No worse with movement. Past Medical History - Infectious Disease Hx of Infectious Diseases: None - Tetanus Immunization Tetanus Immunization: Unknown - Reproductive Menopause: No - Cardiac Hx Cardiac Disorders: Yes Hx MT: Yes Hx Hypertension: Yes - Pulmonary Hx Respiratory Disorders: Yes Hx Chronic Obstructive Pulmonary Disease (COPD): Yes - Neurological Hx Neurological Disorder: Yes Hx Dementia: Yes - HEENT Hx HEENT Disorder: Yes (wears glasses) Hx Cataracts: Yes (bilateral) - Renal Hx Renal Disorder: No - Endocrine/Metabolic Hx Endocrine Disorders: No - Hematological/Oncological Hx Blood Disorders: No - Integumentary Hx Dermatological Disorder: No - Musculoskeletal/Rheumatological Hx Musculoskeletal Disorders: Yes Hx Back Pain: Yes Hx Osteoarthritis: Yes - Gastrointestinal Hx Gastrointestinal Disorders: No - Genitourinary/Gynecological Hx Genitourinary Disorders: Yes Hx Incontinence: Yes Other/Comment: bladder prolapse with lift - Psychiatric Hx Psychophysiologic Disorder: No Hx Substance Use: No - Surgical History Hx Cardiac Catheterization: Yes Hx Coronary Stent: Yes Hx Hysterectomy: Yes Other/Comment: Bladder lift - Anesthesia Hx Anesthesia: No Hx Anesthesia Reactions: No Hx Malignant Hyperthermia: No - Suicidal Assessment Feels Threatened In Home Enviroment: No Family/Social History - Physician Review Nursing Documentation Reviewed: Yes Family/Social History: Unknown Family HX Smoking Status: Former Smoker (Quit smoking 20 years ago) Hx Alcohol Use: No Hx Substance Use: No Hx Substance Use Treatment: No Allergies/Home Meds Allergies/Adverse Reactions: Allergies Penicillins Allergy (Severe, Verified 10/18/17 13:26) RASH Home Medications: Home Meds Medication Instructions Recorded Confirmed RX: Metoprolol Succinate 50 mg PO DAILY 09/08/14 10/18/17 RX: Atorvastatin Calcium [Lipitor] 40 mg PO DAILY 11/10/14 10/18/17 Multivitamin [One Daily] 1 tab PO DAILY 04/12/16 10/18/17 Psyllium Husk [Metamucil] 1 tab PO DAILY 04/12/16 10/18/17 RX: Folic Acid 1 mg PO DAILY 04/12/16 10/18/17 Review of Systems - Physician Review All systems were reviewed & negative as marked: Yes - Review of Systems Constitutional: absent: Fatigue, Fevers Respiratory: absent: SOB, Cough Cardiovascular: absent: Chest Pain, Palpitations, Syncope Gastrointestinal: absent: Abdominal Pain, Diarrhea, Nausea, Vomiting Genitourinary Female: absent: Dysuria, Frequency, Hematuria Neurological: absent: Focal Weakness, Gait Changes Physical Exam Vital Signs Temp Pulse Resp BP Pulse Ox 01/28/18 13:55 97.9 F 65 18 130/50 L 99 Temperature: Afebrile Blood Pressure: Normal Pulse: Regular Respiratory Rate: Normal Appearance: Positive for: Well-Appearing, Non-Toxic, Comfortable, Uncomfortable Pain Distress: Mild Mental Status: Positive for: Alert and Oriented X 3 - Systems Exam Neck: Present: Normal Range of Motion Respiratory/Chest: Present: Clear to Auscultation, Good Air Exchange. No: Respiratory Distress, Accessory Muscle Use Cardiovascular: Present: Regular Rate and Rhythm, Normal S1, S2. No: Murmurs Abdomen: No: Tenderness, Distention, Peritoneal Signs, Rebound, Guarding Back: No: Normal Inspection, CVA Tenderness, Midline Tenderness, Paraspinal Tenderness Upper Extremity: Present: Normal Inspection. No: Cyanosis, Edema Lower Extremity: Present: Normal Inspection. No: Edema Neurological: Present: GCS=15, CN II-XII Intact, Speech Normal, Motor Func Grossly Intact Skin: Present: Rashes (Erythematous rash in the left flank.) Medical Decision Making ED Course and Treatment: 01/28/18 14:03 Patient probably has early shingles. She'll be treated with pain medication and Famvir. Follow-up with . Disposition/Present on Arrival - Present on Arrival Any Indicators Present on Arrival: No History of DVT/PE: No History of Uncontrolled Diabetes: No Urinary Catheter: No History of Decub. Ulcer: No History Surgical Site Infection Following: None - Disposition Have Diagnosis and Disposition been Completed?: Yes Diagnosis: Shingles Disposition: HOME/ ROUTINE Disposition Time: 14:03 Patient Plan: Discharge Condition: Discharge Instructions (ExitCare): [place] (ED) Prescriptions: Famciclovir [Famvir] 500 mg PO Q8 #21 tab Tramadol HCl [Ultram] 50 mg PO Q6 PRN #20 tab PRN Reason: Pain Ondansetron [Zofran Odt] 4 mg SL Q6 #20 odt Forms: [employer] (Ukrainian)
[2018-01-28 14:39] VITALS: BP 126/83; PULSE 76; RESP 19; TEMP 98
== END 2018-01-28 14:38 | disposition home or self-care (01) ==
LOC: ED 13:54
DX: B02.9 Zoster without complications (principal)

== ENCOUNTER 2018-02-11 13:36 | Emergency (ER) | payer MEDICARE ==
[2018-02-11 13:44] VITALS: BMI 22.6
[2018-02-11 14:01] VITALS: TEMP 98.6
--- NOTE | 2018-02-11 14:08 | ED PDOC ---
Arrival/HPI - General Chief Complaint: Female Genitourinary Historian: Patient - History of Present Illness Narrative History of Present Illness (Text): 02/11/18 14:00 82 y/o female, pmh including htn/hld, penicillin allergy, c/o vaginal irritation x 3 days with no fall or trauma. Pt. stated that she has not been sexually active for over 10 years, been having vaginal irritation associated with urination for the past 3 days, no pelvic or flank pain, no abdominal pain, no night sweat, no rash, no numbness or tingling, on other medical or psychological complaints. Past Medical History - Provider Review Nursing Documentation Reviewed: Yes - Infectious Disease Hx of Infectious Diseases: None - Tetanus Immunization Tetanus Immunization: Unknown - Reproductive Menopause: No - Cardiac Hx Cardiac Disorders: Yes Hx IA: Yes Hx Hypertension: Yes - Pulmonary Hx Respiratory Disorders: Yes Hx Chronic Obstructive Pulmonary Disease (COPD): Yes - Neurological Hx Neurological Disorder: Yes Hx Dementia: Yes - HEENT Hx HEENT Disorder: Yes (wears glasses) Hx Cataracts: Yes (bilateral) - Renal Hx Renal Disorder: No - Endocrine/Metabolic Hx Endocrine Disorders: No - Hematological/Oncological Hx Blood Disorders: No - Integumentary Hx Dermatological Disorder: No - Musculoskeletal/Rheumatological Hx Musculoskeletal Disorders: Yes Hx Back Pain: Yes Hx Osteoarthritis: Yes - Gastrointestinal Hx Gastrointestinal Disorders: No - Genitourinary/Gynecological Hx Genitourinary Disorders: Yes Hx Incontinence: Yes Other/Comment: bladder prolapse with lift - Psychiatric Hx Psychophysiologic Disorder: No Hx Substance Use: No - Surgical History Hx Cardiac Catheterization: Yes Hx Coronary Stent: Yes Hx Hysterectomy: Yes Other/Comment: Bladder lift - Anesthesia Hx Anesthesia: No Hx Anesthesia Reactions: No Hx Malignant Hyperthermia: No - Suicidal Assessment Feels Threatened In Home Enviroment: No Family/Social History - Physician Review Nursing Documentation Reviewed: Yes Family/Social History: Unknown Family HX Smoking Status: Former Smoker (Quit smoking 20 years ago) Hx Alcohol Use: No Hx Substance Use: No Hx Substance Use Treatment: No Allergies/Home Meds Allergies/Adverse Reactions: Allergies Penicillins Allergy (Severe, Verified 10/18/17 13:26) RASH Home Medications: Home Meds Medication Instructions Recorded Confirmed Metoprolol Succinate 50 mg PO DAILY 09/08/14 10/18/17 Atorvastatin Calcium [Lipitor] 40 mg PO DAILY 11/10/14 10/18/17 Folic Acid 1 mg PO DAILY 04/12/16 10/18/17 Multivitamin [One Daily] 1 tab PO DAILY 04/12/16 10/18/17 Psyllium Husk [Metamucil] 1 tab PO DAILY 04/12/16 10/18/17 Review of Systems - Review of Systems Constitutional: absent: Fatigue, Fevers Eyes: absent: Vision Changes ENT: absent: Hearing Changes Respiratory: absent: SOB, Cough Cardiovascular: absent: Chest Pain Gastrointestinal: absent: Abdominal Pain, Diarrhea, Nausea, Vomiting Genitourinary Female: Other (vaginal irritation with urination) Musculoskeletal: absent: Arthralgias, Back Pain Skin: absent: Rash, Pruritis, Skin Lesions Neurological: absent: Headache Psychiatric: absent: Anxiety, Depression Physical Exam Vital Signs Reviewed: Yes Vital Signs Temp Pulse Resp BP Pulse Ox 02/11/18 13:44 98.6 F 80 20 145/80 99 Temperature: Afebrile Blood Pressure: Normal Pulse: Regular Respiratory Rate: Normal Appearance: Positive for: Well-Appearing, Non-Toxic, Comfortable Pain Distress: None Mental Status: Positive for: Alert and Oriented X 3 - Systems Exam Head: Present: Atraumatic, Normocephalic Pupils: Present: PERRL Extroacular Muscles: Present: EOMI Conjunctiva: Present: Normal Mouth: Present: Moist Mucous Membranes Neck: Present: Normal Range of Motion Respiratory/Chest: Present: Clear to Auscultation, Good Air Exchange. No: Respiratory Distress, Accessory Muscle Use Cardiovascular: Present: Regular Rate and Rhythm, Normal S1, S2. No: Murmurs Abdomen: No: Tenderness, Distention, Peritoneal Signs Genitourinary/Pelvic Exam: Present: Normal External Genitalia, Cervical os Margo sed, Other (Female [employer] clothing examiner: Samanta Abdifatah). No: Vaginal Discharge, Vaginal Bleeding, Vaginal Lesions, Adenexal Tenderness, Adenexal Mass, Cervical Motion Tendernes, Odor Back: Present: Normal Inspection Upper Extremity: Present: Normal Inspection. No: Cyanosis, Edema Lower Extremity: Present: Normal Inspection. No: Edema Neurological: Present: GCS=15, CN II-XII Intact, Speech Normal Skin: Present: Warm, Dry, Normal Color. No: Rashes Psychiatric: Present: Alert, Oriented x 3, Normal Insight, Normal Concentration Medical Decision Making ED Course and Treatment: 02/11/18 14:15 -UA -Observe and reassess 02/11/18 14:48 -UA show +UTI and +yeast, discharge home with bactrim ds (last urine culture 10/2017 is sensitive to bactrim ds) and ordered diflucan 150mg po here. -Discharge home with bactrim ds, repeat UA after 1 week completion of the antibiotic, follow up with your own pmd and obgyn within 2 days, return to the ER for any new or worsening signs or symptoms. - PA / PAYROLL ASSISTANT / Resident Statement MD/DO has reviewed & agrees with the documentation as recorded. Disposition/Present on Arrival - Present on Arrival Any Indicators Present on Arrival: No History of DVT/PE: No History of Uncontrolled Diabetes: No Urinary Catheter: No History of Decub. Ulcer: No History Surgical Site Infection Following: None - Disposition Have Diagnosis and Disposition been Completed?: Yes Diagnosis: UTI (urinary tract infection), Candidiasis Disposition: HOME/ ROUTINE Disposition Time: 14:49 Patient Plan: Discharge Condition: GOOD Additional Instructions: -Discharge home with bactrim ds, repeat UA after 1 week completion of the antibiotic, follow up with your own pmd and obgyn within 2 days, return to the ER for any new or worsening signs or symptoms. Prescriptions: Sulfamethoxazole/Trimethoprim [Bactrim DS 800 mg-160 mg] 1 tab PO BID #14 tab Referrals: Yosvany Carlson MD [Family Provider] - Follow up with primary Marci Dee MD [Staff Provider] - Follow up with primary Forms: [employer] (Persian), WORK NOTE
[2018-02-11 14:29] LABS: URINE APPEARANCE CLEAR (CLEAR); URINE BILIRUBIN NEGATIVE (NEGATIVE); URINE BLOOD TRACE-INTACT (NEGATIVE); URINE COLOR YELLOW (YELLOW); URINE GLUCOSE (UA) NEGATIVE (NEGATIVE); URINE LEUKOCYTE ESTERASE SMALL Leu/uL (NEGATIVE); URINE PROTEIN NEGATIVE mg/dL (<30 mg/dL); URINE UROBILINOGEN 0.2 E.U./dL (<1 E.U./dL)
[2018-02-11 14:46] LABS: URINE AMORPHOUS SEDIMENT FEW; URINE BACTERIA MANY (NEG)
[2018-02-11 16:02] VITALS: BP 139/67; PULSE 83; RESP 19; O2SAT 100
== END 2018-02-11 15:20 | disposition home or self-care (01) ==
LOC: ED 13:36
DX: N39.0 Urinary tract infection, site not specified (principal); B37.9 Candidiasis, unspecified

== ENCOUNTER 2018-03-13 12:55 | Emergency (ER) | payer MEDICARE ==
[2018-03-13 12:55] VITALS: BMI 22.6
--- NOTE | 2018-03-13 13:16 | ED PDOC ---
Arrival/HPI - General Chief Complaint: GI Problem Time Seen by Provider: 03/13/18 12:59 Historian: Patient - History of Present Illness Narrative History of Present Illness (Text): 03/13/18 13:14 82 year old female, whose past medical history includes penicillin allergy, hypertension, hyperlipidemia, NC, COPD, osteoarthritis, and a bladder prolapse with lift, presents to the emergency department complaining of nausea and vomit ing, for the past few hours. Patient states she was on her way home when she began to get car sick, felt nauseous and started vomiting. Family took her to the urgent care who sent her to the emergency department for persistent vomiting. Patient reports associated generalized weakness and mild headache. She denies fevers, chills, dizziness, chest pain, shortness of breath, dyspnea on exertion, cough, abdominal pain, diarrhea, back pain, neck pain, or any other complaint. PMD: Dr. Carlson 03/13/18 18:23 Time/Duration: Prior to Arrival Symptom Onset: Gradual Symptom Course: Unchanged Activities at Onset: Light Context: Home Past Medical History - Provider Review Nursing Documentation Reviewed: Yes - Infectious Disease Hx of Infectious Diseases: None - Tetanus Immunization Tetanus Immunization: Unknown - Reproductive Menopause: Yes - Cardiac Hx Cardiac Disorders: Yes Hx NC: Yes Hx Hypertension: Yes - Pulmonary Hx Respiratory Disorders: Yes Hx Chronic Obstructive Pulmonary Disease (COPD): Yes - Neurological Hx Neurological Disorder: Yes Hx Dementia: Yes - HEENT Hx HEENT Disorder: Yes (wears glasses) Hx Cataracts: Yes (bilateral) - Renal Hx Renal Disorder: No - Endocrine/Metabolic Hx Endocrine Disorders: No - Hematological/Oncological Hx Blood Disorders: No - Integumentary Hx Dermatological Disorder: No - Musculoskeletal/Rheumatological Hx Musculoskeletal Disorders: Yes Hx Back Pain: Yes Hx Osteoarthritis: Yes - Gastrointestinal Hx Gastrointestinal Disorders: No - Genitourinary/Gynecological Hx Genitourinary Disorders: Yes Hx Incontinence: Yes Other/Comment: bladder prolapse with lift - Psychiatric Hx Psychophysiologic Disorder: No Hx Substance Use: No - Surgical History Hx Cardiac Catheterization: Yes Hx Coronary Stent: Yes Hx Hysterectomy: Yes Other/Comment: Bladder lift - Anesthesia Hx Anesthesia: No Hx Anesthesia Reactions: No Hx Malignant Hyperthermia: No - Suicidal Assessment Feels Threatened In Home Enviroment: No Family/Social History - Physician Review Nursing Documentation Reviewed: Yes Family/Social History: No Known Family HX Smoking Status: Former Smoker Hx Alcohol Use: No Hx Substance Use: No Hx Substance Use Treatment: No Allergies/Home Meds Allergies/Adverse Reactions: Allergies Penicillins Allergy (Severe, Verified 10/18/17 13:26) RASH Home Medications: Home Meds Medication Instructions Recorded Confirmed RX: Metoprolol Succinate 50 mg PO DAILY 09/08/14 10/18/17 RX: Atorvastatin Calcium [Lipitor] 40 mg PO DAILY 11/10/14 10/18/17 Multivitamin [One Daily] 1 tab PO DAILY 04/12/16 10/18/17 Psyllium Husk [Metamucil] 1 tab PO DAILY 04/12/16 10/18/17 RX: Folic Acid 1 mg PO DAILY 04/12/16 10/18/17 Review of Systems - Physician Review All systems were reviewed & negative as marked: Yes - Review of Systems Constitutional: Other (generalized weakness ). absent: Fevers Respiratory: absent: SOB, Cough Cardiovascular: absent: Chest Pain Gastrointestinal: Nausea, Vomiting. absent: Abdominal Pain, Diarrhea Musculoskeletal: absent: Back Pain, Neck Pain Neurological: Headache. absent: Dizziness Physical Exam Vital Signs Reviewed: Yes Temperature: Afebrile Blood Pressure: Hypertensive Pulse: Bradycardic Respiratory Rate: Normal Appearance: Positive for: Well-Appearing, Non-Toxic, Comfortable Pain Distress: None Mental Status: Positive for: Alert and Oriented X 3 - Systems Exam Head: Present: Atraumatic, Normocephalic Pupils: Present: PERRL Extroacular Muscles: Present: EOMI Conjunctiva: Present: Normal Mouth: Present: Moist Mucous Membranes Neck: Present: Normal Range of Motion Respiratory/Chest: Present: Clear to Auscultation, Good Air Exchange. No: Respiratory Distress, Accessory Muscle Use Cardiovascular: Present: Regular Rate and Rhythm, Normal S1, S2. No: Murmurs Abdomen: No: Tenderness, Distention, Peritoneal Signs Back: Present: Normal Inspection Upper Extremity: Present: Normal Inspection. No: Cyanosis, Edema Lower Extremity: Present: Normal Inspection. No: Edema Neurological: Present: GCS=15, CN II-XII Intact, Speech Normal Skin: Present: Warm, Dry, Normal Color. No: Rashes Psychiatric: Present: Alert, Oriented x 3, Normal Insight, Normal Concentration Medical Decision Making ED Course and Treatment: 03/13/18 13:14 Impression: 82 year old female who presents to the emergency department complaining of nausea and vomiting. ro atypcial cardiac metabolic infectious etiology Plan: -- EKG -- Labs -- Chest X-ray -- Urinalysis -- Zofran -- Reassess and disposition Prior Visits: Notes and results from previous visits were reviewed. Progress Notes: EKG reviewed, shows: NSR at [address]/T wave changes. 03/13/18 14:29 On reevaluation the patient feels better and is in no acute distress. I have discussed the results and plan with the patient, who expresses understanding. Patient given the opportunity to ask question, all questions were answered and there is agreement with the plan to discharge the patient home. Patient is stable for discharge. Patient was instructed to follow up with physician/clinic in 1-2 days or return if symptoms persist/worsen or new concerning symptoms arise. 03/13/18 15:25 Chest X-ray reviewed by radiologist, shows: IMPRESSION: No interval acute cardiopulmonary disease appreciated. 03/13/18 18:23 all symptoms resolved. pt smiling in nad. states she feels well for dc. no cp . no ekg changes trop neg. abd soft no ttp. advise outpt fu return precautions - Lab Interpretations I have reviewed the lab results: Yes - RAD Interpretation Radiology Orders: 03/13/18 13:13 CHEST PORTABLE [RAD] Stat - EKG Interpretation Interpreted by ED Physician: Yes Type: 12 lead EKG - Scribe Statement The provider has reviewed the documentation as recorded by the Summeribxin Kaur Provider Scribe Attestation: All medical record entries made by the Scribe were at my direction and personally dictated by me. I have reviewed the chart and agree that the record accurately reflects my personal performance of the history, physical exam, medical decision making, and the department course for this patient. I have also personally directed, reviewed, and agree with the discharge instructions and disposition. Disposition/Present on Arrival - Present on Arrival Any Indicators Present on Arrival: No History of DVT/PE: No History of Uncontrolled Diabetes: No Urinary Catheter: No History of Decub. Ulcer: No History Surgical Site Infection Following: None - Disposition Have Diagnosis and Disposition been Completed?: Yes Diagnosis: Nausea Disposition: HOME/ ROUTINE Disposition Time: 13:00 Condition: STABLE Discharge Instructions (ExitCare): Nausea and Vomiting, Adult Additional Instructions: return to er with worsening symptosm or concerns. return to any er with worsening. Referrals: Yosvany Carlson MD [Primary Care Provider] - Follow up with primary Forms: [employer] (Romanian)
[2018-03-13 13:26] VITALS: BP 180/91; PULSE 56; RESP 16; TEMP 98.3; O2SAT 99
[2018-03-13 13:50] LABS: BASO # 0.01 K/mm3 (0.0-2.0); BASO % 0.1 % (0.0-3.0); EOS % 0.3 % (1.5-5.0); GRAN # 6.72 (1.4-6.5); GRAN % 86.4 % (50.0-68.0); HEMOGLOBIN 13.9 g/dL (12.0-16.0); LYMPH # 0.8 (1.2-3.4); LYMPH % 10.4 % (22.0-35.0); MEAN CELL VOLUME 90.2 fl (80.0-105.0); MEAN CORPUSCULAR HEMOGLOBIN 30.2 pg (25.0-35.0); MEAN CORPUSCULAR HGB CONC 33.4 g/dl (31.0-37.0); MONO # 0.2 (0.1-0.6); MONO % 2.8 % (1.0-6.0); RBC 4.61 10^6/uL (3.5-6.1); WHITE BLOOD COUNT 7.8 10^3/uL (4.5-11.0)
[2018-03-13 14:04] LABS: ALB/GLOB RATIO 1.4 (1.1-1.8); ALBUMIN 4.2 g/dL (3.0-4.8); ALT/SGPT 32 U/L (7-56); AST/SGOT 29 U/L (14-36); BLOOD UREA NITROGEN 14 mg/dL (7-21); CALCIUM 9.2 mg/dL (8.4-10.5); GFR NON-AFRICAN AMERICAN > 60; LIPASE 48 U/L (23-300)
[2018-03-13 14:06] LABS: INR 1.01; PARTIAL THROMBOPLASTIN TIME 28.3 Seconds (25.1-36.5); PROTHROMBIN TIME 11.6 SECONDS (9.4-12.5)
[2018-03-13 14:12] LABS: TROPONIN I < 0.01 ng/mL
--- NOTE | 2018-03-13 15:06 | RAD ---
Date of service: 03/13/2018 HISTORY: weakness COMPARISON: Portable chest 12/22/2016. FINDINGS: LUNGS: No active pulmonary disease. PLEURA: No significant pleural effusion identified, no pneumothorax apparent. CARDIOVASCULAR: Calcific atherosclerotic changes are seen related to the thoracic aorta. Normal cardiac size. No pulmonary vascular congestion. OSSEOUS STRUCTURES: No significant abnormalities. VISUALIZED UPPER ABDOMEN: Normal. OTHER FINDINGS: None. IMPRESSION: No interval acute cardiopulmonary disease appreciated.
--- NOTE | 2018-03-14 00:26 | CARD ---
APPROVED REPORT Date of service: 03/13/2018 EKG Measurement Heart [id number] <Conclusion> Normal sinus rhythm Nonspecific ST abnormality Abnormal ECG
== END 2018-03-13 14:52 | disposition home or self-care (01) ==
LOC: ED 12:55
DX: R11.2 Nausea with vomiting, unspecified (principal); E78.5 Hyperlipidemia, unspecified; I10 Essential (primary) hypertension; J44.9 Chronic obstructive pulmonary disease, unspecified; M19.90 Unspecified osteoarthritis, unspecified site; Z87.891 Personal history of nicotine dependence
CPT/HCPCS: 71045; 80053; 82550; 83615; 83690; 83735; 84484; 85025; 85610; 85730; 93005; 96374; 99284; J2405

== ENCOUNTER 2018-03-16 12:49 | Emergency (ER) | payer MEDICARE ==
[2018-03-16 12:49] VITALS: BMI 22.6
[2018-03-16 12:57] VITALS: RESP 18; TEMP 98.5
--- NOTE | 2018-03-16 13:34 | ED PDOC ---
Arrival/HPI - General Chief Complaint: Trauma Time Seen by Provider: 03/16/18 12:51 Historian: Patient, Family (daughter) - History of Present Illness Narrative History of Present Illness (Text): 03/16/18 13:33 A 82 year old female, whose past medical history includes dementia, presents to the emergency department complaining of laceration s/p fall. Patient reports she tripped at [employer] and sustained laceration to lip. Per daughter on phone, banking officer told her patient broke her fall with her hands. Patient denies experiencing any dizziness prior to fall. Patient denies any LOC, neck/back pain, teeth broken, or any other complaints at this time. PMD: Dr. Carlson Past Medical History - Provider Review Nursing Documentation Reviewed: Yes - Infectious Disease Hx of Infectious Diseases: None - Tetanus Immunization Tetanus Immunization: Unknown - Reproductive Menopause: Yes - Cardiac Hx Cardiac Disorders: Yes Hx CO: Yes Hx Hypertension: Yes - Pulmonary Hx Respiratory Disorders: Yes Hx Chronic Obstructive Pulmonary Disease (COPD): Yes - Neurological Hx Neurological Disorder: Yes Hx Dementia: Yes - HEENT Hx HEENT Disorder: Yes (wears glasses) Hx Cataracts: Yes (bilateral) - Renal Hx Renal Disorder: No - Endocrine/Metabolic Hx Endocrine Disorders: No - Hematological/Oncological Hx Blood Disorders: No - Integumentary Hx Dermatological Disorder: No - Musculoskeletal/Rheumatological Hx Musculoskeletal Disorders: Yes Hx Back Pain: Yes Hx Osteoarthritis: Yes - Gastrointestinal Hx Gastrointestinal Disorders: No - Genitourinary/Gynecological Hx Genitourinary Disorders: Yes Hx Incontinence: Yes Other/Comment: bladder prolapse with lift - Psychiatric Hx Psychophysiologic Disorder: No Hx Substance Use: No - Surgical History Hx Cardiac Catheterization: Yes Hx Coronary Stent: Yes Hx Hysterectomy: Yes Other/Comment: Bladder lift - Anesthesia Hx Anesthesia: No Hx Anesthesia Reactions: No Hx Malignant Hyperthermia: No - Suicidal Assessment Feels Threatened In Home Enviroment: No Family/Social History - Physician Review Nursing Documentation Reviewed: Yes Family/Social History: No Known Family HX Smoking Status: Former Smoker Hx Alcohol Use: No Hx Substance Use: No Hx Substance Use Treatment: No Allergies/Home Meds Allergies/Adverse Reactions: Allergies Penicillins Allergy (Severe, Verified 03/16/18 12:57) RASH Home Medications: Home Meds Medication Instructions Recorded Confirmed Metoprolol Succinate 50 mg PO DAILY 09/08/14 10/18/17 Atorvastatin Calcium [Lipitor] 40 mg PO DAILY 11/10/14 10/18/17 Folic Acid 1 mg PO DAILY 04/12/16 10/18/17 Multivitamin [One Daily] 1 tab PO DAILY 04/12/16 10/18/17 Psyllium Husk [Metamucil] 1 tab PO DAILY 04/12/16 10/18/17 Review of Systems - Physician Review All systems were reviewed & negative as marked: Yes - Review of Systems Musculoskeletal: absent: Back Pain, Neck Pain Skin: Laceration (lip) Neurological: Headache, Dizziness Physical Exam Vital Signs Reviewed: Yes Vital Signs Temp Pulse Resp BP Pulse Ox 03/16/18 12:50 98.5 F 76 18 134/82 97 Temperature: Afebrile Blood Pressure: Normal Pulse: Regular Respiratory Rate: Normal Appearance: Positive for: Well-Appearing, Non-Toxic, Comfortable Pain Distress: None Mental Status: Positive for: Alert and Oriented X 3 - Systems Exam Head: Present: Atraumatic, Normocephalic Pupils: Present: PERRL Extroacular Muscles: Present: EOMI Conjunctiva: Present: Normal Mouth: Present: Moist Mucous Membranes. No: Normal Lips (left lower lip laceration) Neck: Present: Normal Range of Motion Respiratory/Chest: Present: Clear to Auscultation, Good Air Exchange. No: Respiratory Distress, Accessory Muscle Use Cardiovascular: Present: Regular Rate and Rhythm, Normal S1, S2. No: Murmurs Abdomen: No: Tenderness, Distention, Peritoneal Signs Back: Present: Normal Inspection Upper Extremity: Present: Normal Inspection. No: Cyanosis, Edema Lower Extremity: Present: Normal Inspection. No: Edema Neurological: Present: GCS=15, CN II-XII Intact, Speech Normal Skin: Present: Warm, Dry, Normal Color. No: Rashes Psychiatric: Present: Alert, Oriented x 3, Normal Insight, Normal Concentration Medical Decision Making ED Course and Treatment: 03/16/18 13:36 Impression: 82 year old female laceration s/p fall. Plan: -- Cervical Spinal CT -- Head CT -- Boostrix Vaccine -- Reassess and disposition Progress Notes: - Scribe Statement The provider has reviewed the documentation as recorded by the Kinjal Avila Provider Scribe Attestation: All medical record entries made by the Scribe were at my direction and personally dictated by me. I have reviewed the chart and agree that the record accurately reflects my personal performance of the history, physical exam, medical decision making, and the department course for this patient. I have also personally directed, reviewed, and agree with the discharge instructions and disposition. Disposition/Present on Arrival - Present on Arrival Any Indicators Present on Arrival: No History of DVT/PE: No History of Uncontrolled Diabetes: No Urinary Catheter: No History of Decub. Ulcer: No History Surgical Site Infection Following: None - Disposition Have Diagnosis and Disposition been Completed?: Yes Diagnosis: Fall, Contusion, lip Disposition: HOME/ ROUTINE Disposition Time: 14:40 Patient Plan: Discharge Condition: IMPROVED Discharge Instructions (ExitCare): Contusion (DC), Preventing Falls Print Language: BENGALI Referrals: Yosvany Carlson MD [Primary Care Provider] - Follow up with primary Forms: [employer] (Swedish)
[2018-03-16] MEDS ORDERED: TDAP Vaccine 0.5 mL Syr IM ONE (13:35)
--- NOTE | 2018-03-16 14:25 | CT ---
Date of service: 03/16/2018 PROCEDURE: CT HEAD WITHOUT CONTRAST. HISTORY: headache COMPARISON: MRI brain dated 07/14/2014 TECHNIQUE: Axial computed tomography images were obtained through the head/brain without intravenous contrast. Radiation dose: Total exam DLP = 1221.08 mGy-cm. This CT exam was performed using one or more of the following dose reduction techniques: Automated exposure control, adjustment of the mA and/or kV according to patient size, and/or use of iterative reconstruction technique. FINDINGS: HEMORRHAGE: No intracranial hemorrhage. BRAIN: No mass effect or edema. Atrophy. Chronic microvascular ischemic changes. VENTRICLES: Unremarkable. No hydrocephalus. CALVARIUM: Unremarkable. PARANASAL SINUSES: Unremarkable as visualized. No significant inflammatory changes. MASTOID AIR CELLS: Unremarkable as visualized. No inflammatory changes. OTHER FINDINGS: None. IMPRESSION: Limited examination due to motion artifact. No acute intracranial pathology. Age-related changes. No significant interval change.
--- NOTE | 2018-03-16 14:27 | CT ---
Date of service: 03/16/2018 PROCEDURE: CT Cervical Spine without contrast HISTORY: fall COMPARISON: None available. TECHNIQUE: Axial computed tomography images were obtained of the cervical spine without the use of intravenous contrast. Coronal and sagittal reformatted images were created and reviewed. Radiation dose: Total exam DLP = 406.46 mGy-cm. This CT exam was performed using one or more of the following dose reduction techniques: Automated exposure control, adjustment of the mA and/or kV according to patient size, and/or use of iterative reconstruction technique. FINDINGS: VERTEBRAE: No fracture. Normal alignment. 3 mm anterior subluxation of C3 on C4. No destructive bony lesion. DISCS/SPINAL CANAL/NEURAL FORAMINA: Multilevel disc space narrowing with osteophytic changes, most severe at C4-5 and C5-6 with there is severe spinal canal stenosis. PARASPINAL SOFT TISSUES: Unremarkable. OTHER FINDINGS: Tiny left thyroid nodule. IMPRESSION: No acute fracture. Multilevel degenerative changes, worst at C4-5 and C5-6 with there is severe central canal and neural foraminal stenosis. 3 mm anterior subluxation of C3 on C4. Tiny left hypodense thyroid nodule. Dedicated thyroid ultrasound can be obtained on a nonemergent basis as clinically warranted.
[2018-03-16 15:08] VITALS: BP 163/92; PULSE 60
[2018-03-16 15:09] VITALS: O2SAT 98
== END 2018-03-16 14:42 | disposition home or self-care (01) ==
LOC: ED 12:49
DX: S00.531A Contusion of lip, initial encounter (principal); W01.0XXA Fall on same level from slipping, tripping and stumbling without subsequent striking against object, initial encounter; Y92.22 Religious institution as the place of occurrence of the external cause; Z23 Encounter for immunization; I10 Essential (primary) hypertension; I25.2 Old myocardial infarction; Z87.891 Personal history of nicotine dependence; J44.9 Chronic obstructive pulmonary disease, unspecified